=== PATIENT | male | born 1950 | race Caucasian/White ===

== ENCOUNTER → 2019-03-25 | Outpatient (CLI) | payer MEDICARE, OTHER | END | disposition home or self-care (01) | LOC: LABPAT 16:42 | PROVIDERS: ATTEND Orthopaedic Surgery | DX: Z01.812 Encounter for preprocedural laboratory examination (principal) | CPT/HCPCS: 87070 ==

== ENCOUNTER 2019-04-16 10:45 | Day surgery (SDC) | payer MEDICARE, OTHER ==
--- NOTE | 2019-04-15 09:21 | HP ---
HISTORY AND PHYSICAL CHIEF COMPLAINT: Right knee pain. 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 He has had a previous arthroscopy in addition to injections and medications with only partial temporary relief. He notes pain that limits his normal function and activities. PAST MEDICAL HISTORY: Significant for hypertension, arthritis, and prostate cancer. PAST SURGICAL HISTORY: Significant for previous right knee arthroscopy. CURRENT MEDICATIONS: Losartan. ALLERGIES: He denies drug allergies. FAMILY HISTORY: Significant for heart disease and cancer. SOCIAL HISTORY: Significant for previous chewing tobacco use. REVIEW OF SYSTEMS: Sixteen-point review of systems otherwise reviewed and is noncontributory. PHYSICAL EXAMINATION: On examination, the patient is approximately 5 feet 9 inches, 300 pounds of endomorphic habitus. HEENT exam is nonfocal. Neck is supple. He has painless passive motion of the right hip. Straight leg raise is negative. Active motion right knee -6 to 110 degrees of flexion. He has a mild effusion. He is tender about the medial joint line. He has genu varum alignment. Collaterals are stable, Kelly's negative, Valery's is equivocal. His distal neurovascular exam appears intact in the right lower extremity. Previous weightbearing notch lateral and Merchant views of the right knee obtained in the office show severe medial and patellofemoral compartment narrowing. IMPRESSION: 1. Right knee severe medial and patellofemoral compartment osteoarthrosis. 2. Obesity. RECOMMENDATIONS: I talked to the patient at length regarding his condition along with treatment options. At this point, he notes he is quite limited because of pain related to his osteoarthrosis despite conservative measures. After thorough discussion, he opts to proceed with surgery. We will plan to proceed with right total knee arthroplasty. We will institute DVT prophylaxis postoperatively. Risks and benefits were discussed at length in layman's terms. MMODL / IJN: [id number] /
[~2019-04-16 10:45] MED LIST: ACETAMINOPHEN TAB 500 MG TAB PO ONE; DEXAMETHASONE SOD PHOSPHATE 10 MG/ML 1 ML VIAL IV ONE; HYDROmorphone 0.5 MG/0.5 ML SYRINGE IVP PRN; MELOXICAM 7.5 MG TAB PO ONE; MIDAZOLAM 2 MG/2 ML VIAL IV PRN; ONDANSETRON 4 MG/2 ML VIAL IVP ONE; ROPIVACAINE 246.25 MG, EPINEPHrine 0.5 MG, KETOROLAC 30 MG, cloNIDine HCL/PF 80 MCG, WA... MISCELLANE ONE; TRANEXAMIC ACID 1,000 MG in SODIUM CHLORIDE 0.9% 100 ML IVPB ONE; ceFAZolin 3 GM in SODIUM CHLORIDE 0.9% 100 ML IVPB ONE
[2019-04-16] MEDS: LACTATED RINGERS 1,000 ML IV SCH (11:39)
[2019-04-16] MEDS ORDERED: LIDOCAINE 1% 20 ML VIAL (10MG/ML) FOR IV START INTRADERMA ONE (11:40)
[2019-04-16] MEDS ORDERED: MIDAZOLAM 2 MG/2 ML VIAL IVP ONE (12:03)
[2019-04-16] MEDS ORDERED: fentaNYL (PF) 50 MCG/ML 2 ML AMP IVP ONE (12:04)
[2019-04-16] MEDS ORDERED: ePHEDrine SULFATE/0.9% NACL/PF 50 MG/5 ML SYRINGE IV ONE (13:39)
[2019-04-16] MEDS ORDERED: PHENYLEPHRINE-0.9% NACL SYG 1 MG/10 ML SYRINGE ONE (13:39)
[2019-04-16] MEDS ORDERED: fentaNYL (PF) 50 MCG/ML 2 ML AMP ONE (13:39)
[2019-04-16] MEDS ORDERED: TRANEXAMIC ACID 1,000 MG/10 ML VIAL ONE (13:39)
[2019-04-16] MEDS ORDERED: MIDAZOLAM 2 MG/2 ML VIAL ONE (13:39)
[2019-04-16] MEDS ORDERED: PROPOFOL 10 MG/ML 20 ML VIAL IV ONE (13:39)
[2019-04-16] MEDS ORDERED: SODIUM CHLORIDE 0.9% 100 ML BAG ONE (13:39)
[2019-04-16] MEDS ORDERED: ceFAZolin 3,000 MG in SODIUM CHLORIDE 0.9% IRRIGATIO 3,000 ML IRRIGATION ONE (14:17)
[2019-04-16] MEDS ORDERED: LACTATED RINGERS 1,000 ML IV ONE ×2 (14:45→16:52)
[2019-04-16] MEDS ORDERED: ROPIVACAINE 0.2%-NS ON-Q PUMP 1,090 MG, EMPTY PAIN BALL 1 EACH MISCELLANE PRN (15:00)
--- NOTE | 2019-04-16 15:02 | P.ANPRN ---
Procedure Note - Anesthesia - Nerve Block Performed Right Adductor Canal Infusion Time Out Performed: Yes Date of Procedure: 04/16/19 Procedure Start Time: 12:02 Procedure Stop Time: 12:15 Location of Patient: PreOp Indication: Acute Post-Operative Pain Specifically requested for management of pain by DrDahlia: Paul Pham Sedation Type: Sedate with meaningful contact maintained Preparation: Sterile Prep Position: Supine Catheter Depth at Skin (cm): 8 Catheter: Indwelling Needle Types: Pajunk Needle Gauge: 18 Ultrasound used to visualize needle placement: Yes Ultrasound used to observe medication spread: Yes Injectate: 0.5% Ropivacaine (see comment for volume) (20 cc) Blood Aspirated: No Pain Paresthesia on Injection Noted: No Resistance on Injection: Normal Image Stored and Saved: Yes Events: Uneventful and Well Tolerated
[2019-04-16] MEDS ORDERED: HYDROmorphone 0.5 MG/0.5 ML SYRINGE IVP PRN (15:36)
[2019-04-16] MEDS ORDERED: NALOXONE 0.4 MG/ML 1 ML VIAL IV PRN (15:36)
[2019-04-16] MEDS ORDERED: MAGNESIUM HYDROXIDE 2,400 MG/10 ML CUP PO PRN (15:36)
[2019-04-16] MEDS ORDERED: ONDANSETRON 4 MG/2 ML VIAL IVP PRN (15:36)
[2019-04-16] MEDS ORDERED: traMADol 50 MG TAB PO PRN (15:36)
[2019-04-16] MEDS ORDERED: HYDROcodone/APAP 7.5-325MG 1 EACH TAB PO PRN ×2 (15:36→15:37)
[2019-04-16] MEDS ORDERED: ACETAMINOPHEN TAB 325 MG TAB PO PRN (15:36)
[2019-04-16] MEDS ORDERED: HYDROmorphone 1 MG/ML 1 ML SYRINGE IVP PRN (15:36)
--- NOTE | 2019-04-16 16:01 | P.OP ---
Date of Procedure: 04/16/19 Preoperative Diagnosis: Right knee severe tricompartmental osteoarthrosis Postoperative Diagnosis: Same Procedure(s) Performed: Right total knee arthroplastycementedcruciate substituting Implants: Depuy Attune size 7 cemented femoral component, size 7 cemented tibial component, 9 mm articular surface, 35 mm cemented patellar component. This is a posterior stabilized implant. Anesthesia: regional, local (Ankit), spinal Surgeon: Paul Pham Transportation Program Director #1: Bakari Wheat Estimated Blood Loss (ml): 50 Pathology: other (Bone fragments) Condition: stable Disposition: PACU Indications for Procedure: The patient's a 68-year-old male who presents with progressive right knee pain secondary to osteoarthrosis despite conservative measures. A discussion of the risks and benefits of operative intervention versus continued conservative measures was made with the patient. He opted to proceed with surgery. Operative risks to include infection, neurovascular injury, development of blood clots, possible fracture, possible loosening of components and need for subsequent procedures was discussed. Informed consent was obtained. Operative Findings: As below Description of Procedure: The patient was brought to the operating room, and after induction of spinal anesthesia the right lower extremity was prepped and draped in a normal fashion. The tourniquet was inflated to 270 mm marker. A longitudinal incision extending 3 finger breaths above the superior pole of patella extending to the medial aspect the tibial tubercle was then made. The skin and subcutaneous ti ssues were divided sharply. Electrocautery was used for hemostasis. A medial parapatellar arthrotomy was performed. The medial soft tissues to include the superficial and deep portions of the medial collateral ligament were elevated subperiosteally. The patella was everted. A portion of the retropatellar fat pad was excised sharply. The anterior cruciate ligament was sacrificed. Blunt retractors were placed. A starting hole was made in the distal femur 1 cm anterior to the posterior cruciate ligament origin. An intramedullary femoral guide was then inserted planning on 5 valgus distal cut with 9 mm distal resection. The cutting block was pinned in place. The distal cut was then made. The posterior referencing sizing guide was utilized. I felt size 7 was most appropriate. 3 of external rotation was built into the system and verified off the trans-epicondylar axis and the posterior condyles. The cutting block was pinned in place. The anterior, posterior, and chamfer cuts then made. Bone fragments were removed. The intercondylar guide was placed and the notch cut was made with a sagittal saw. The bone block was removed in one fragment. The trial component was then placed. There is good anterior to posterior and medial to lateral fit. The distal peg holes were drilled. The trial component was removed. Attention was then paid towards preparing the proximal tibia. An extra medullary guide was utilized in line with the tibial shaft and second metatarsal distally. I planned on []mm resection from the medial compartment. The 0 cutting block was pinned in place. The proximal tibial cut was then made. The bone was removed in one fragment. The remnants of the medial and lateral menisci were excised at the capsular junction with electrocautery. The tibia sized most appropriately at size 7. The trial femoral and tibial components were placed along with a 9 mm articular surface. I was able to obtain full flexion and extension with internal and external rotation. After several flexion and extension cycles, the tibial rotation was marked with electrocautery line with the medial one third of the tibial tubercle. Attention was then paid towards preparing the patella. A patella reamer was utilized taking stem to 14 mm of bone stock. A good flush cut was made. The patella sized most appropriately 35 mm. The peg holes were drilled. The trial components placed. I had good patellofemoral tracking with no hands technique. The trial components were then removed. The tibia was prepared in the appropriate rotation with appropriate drill and keel punch. I planned on a 50 mm stem. The posterior osteophytes were removed with a curved osteotome. The flexion and extension gaps were checked and felt to be symmetric at a 9 mm. A trial components were then removed. The posterior soft tissues were injected with ropivacaine. The bony surfaces were prepared with pulsatile lavage and dried. The tibial component was then cemented place was fully seated. Excess cement was removed. The femoral component cemented place and was fully seated. Excess cement was removed. The trial 9 mm articular surface was placed and the knee was put in full extension. The patella component was cemented place. After the cement had sufficiently hardened, the knee was again taken through a range of motion. Again I was able to obtain full flexion and extension with varus and valgus stress. The trial 9 mm articular surface was removed and the final one inserted. This was fully seated. Care was taken to avoid any soft tissue interposition. Pulsatile lavage was again utilized. The medial parapatellar arthrotomy was closed with #2 Ethibond suture. The tourniquet was deflated with approximately 75 minutes total tourniquet time. Final hemostasis was obtained with electrocautery. There was minimal bleeding therefore a deep drain was not placed. The subcutaneous tissues were reapproximated with interrupted 2-0 Vicryl sutures. The skin was reapproximated with 3-0 subcuticular strata fix suture. Skin tape and adhesive was applied. A sterile dressing was applied. The patient was awoken from sedation and transferred to recovery room in good condition. Blood loss was estimated at 50 mL. No complications were incurred. Sponge and needle counts were correct at the end of the case. Misael MATUTE assisted during the major components of this case to include exposure, bone resection, implantation, and closure.
--- NOTE | 2019-04-16 17:00 | XR ---
EXAMINATION TYPE: XR knee limited RT DATE OF EXAM: 04/16/2019 COMPARISON: NONE HISTORY: Postop knee surgery TECHNIQUE: 2 views FINDINGS: There is right knee prosthesis. Components are in anatomic position. IMPRESSION: No complicating process seen.
[2019-04-16 18:53] VITALS: BMI 42.3
[2019-04-16] MEDS ORDERED: SENNOSIDES-DOCUSATE SODIUM 1 EACH TAB PO SCH (21:00)
[2019-04-16] MEDS: ceFAZolin 3 GM in SODIUM CHLORIDE 0.9% 100 ML IVPB SCH (21:41)
--- NOTE | 2019-04-16 22:01 | P.CONS ---
History of Present Illness - Reason for Consult Consult date: 04/16/19 Medical management postoperatively Requesting physician: Paul Pham - Chief Complaint Scheduled right total knee arthroplasty - History of Present Illness 68-year-old male with history of hypertension Patient came in today for scheduled right total knee arthroplasty. Patient tolerated procedure well denies any observed immediate complications postoperatively denies any shortness of breath or chest pain denies any fevers or chills. He reports that pain is well tolerated he passed urine. Tolerated food. Patient reports long history of pains and stiffness in the morning when he wakes up due to degenerative joint disease of the right knee refractory to conservative therapy. we were requested to see the patient to assist with medical management post operatively Review of Systems Pertinent positives as noted in HPI. All other systems were reviewed and are negative Past Medical History Past Medical History: Cancer, Hypertension, Osteoarthritis (OA), Prostate Disorder Additional Past Medical History / Comment(s): Hx prostate CA. History of Any Multi-Drug Resistant Organisms: None Reported Past Surgical History: Heart Catheterization, Prostate Surgery Additional Past Surgical History / Comment(s): Rt Thumb traumatic amputation. Radiation seed implant prostate 2011. Rt knee scope. Heart cath 2018, nl. Past Anesthesia/Blood Transfusion Reactions: No Reported Reaction Past Psychological History: No Psychological Hx Reported Smoking Status: Former smoker Past Alcohol Use History: None Reported Additional Past Alcohol Use History / Comment(s): Occ smoking, quit 1993; also Chewed tobacco, quit 2007. Past Drug Use History: None Reported - Past Family History Father Family Medical History: Cancer Additional Family Medical History / Comment(s): prostate ca Sister(s) Family Medical History: Cancer Additional Family Medical History / Comment(s): breast ca Medications and Allergies Home Medications Medication Instructions Recorded Confirmed Type Ibuprofen [Advil] 200 mg PO Q8HR PRN 04/11/19 04/11/19 History Losartan/Hydrochlorothiazide 1 tab PO DAILY 04/11/19 04/11/19 History [Hyzaar 100-25 Tablet] Allergies Allergy/AdvReac Type Severity Reaction Status Date / Time No Known Allergies Allergy Verified 04/16/19 11:07 Physical Exam Vitals: Vital Signs Temp Pulse Resp BP Pulse Ox 04/16/19 19:27 97.8 F 89 15 133/86 99 04/16/19 17:50 82 104/71 04/16/19 17:35 82 121/77 04/16/19 17:25 98.3 F 84 18 122/82 94 L 04/16/19 17:20 86 131/83 04/16/19 16:45 63 16 109/55 96 04/16/19 16:30 60 16 102/58 93 L 04/16/19 16:15 79 15 100/58 93 L 04/16/19 16:01 96.8 F L 87 18 99/57 96 04/16/19 12:17 80 16 108/65 94 L 04/16/19 11:24 97.6 F 98 16 125/75 97 Intake and Output 04/16/19 04/16/19 04/16/19 06:59 14:59 22:59 Intake Total 190 200 Output Total 50 Balance 1900 150 Intake: IV 1900 200 Output: Estimated Blood Loss 50 Constitutional: No acute distress, conversant, pleasant Eyes: Anicteric sclerae, moist conjunctiva, no lid-lag Pupils equal round reactive to light ENMT: NC/AT Oropharynx clear, no erythema, exudates Neck: Supple, FROM, no masses, or JVD No carotid bruits No thyromegaly Lungs: Clear to auscultation Clear to percussion Normal respiratory effort, no accessory muscle use Cardiovascular: Heart regular in rate and rhythm, No murmurs, gallops, or rubs No peripheral edema Abdominal: Soft Nontender, no guarding, rebound or rigidity Abdomen moving with respiration Normoactive bowel sounds No hepatomegaly, No splenomegaly No palpable mass No abdominal wall hernia noted Skin: Normal temperature, tone, texture, turgor No induration No subcutaneous nodules No rash, lesions No ulcers Extremities: No digital cyanosis No clubbing Pedal pulses intact and symmetrical Radial pulses intact and symmetrical No calf tenderness Psychiatric: Alert and oriented to person, place and time Appropriate affect fair judgement Neuro Muscles Strength 5/5 in bilateral upper and left lower extremity, righ tlower extremity limited exam due to recent surgery and pain Sensation to light touch grossly present throughout Cranial nerves II-XII grossly intact No focal sensory deficits Lymphatics: no palpable cervical or supraclavicular , or inguinal lymph nodes Assessment and Plan Assessment: 68 year old male with dgenerative joint disease, and hypertension, admitted for scheduled right total knee arthroplasty, tolerated procedure well, medicine consulted for medical management post operatively. Plan: right knee degenrative joint disease, s/p right total knee arthroplasty POD # zero pain and DVT PPX per orthopedics currently on xarelto hypertension , controlled continue home meds DVT ppx currently on xarelto full code Check CBC and basic metabolic panel in the morning Encourage use of incentive spirometry Thank you for allowing us to participate in the care of this patient. Do not hesitate to contact us with questions. Someone can be reached from the [facility] hospitalist group at all hours of the day at [phone].
[2019-04-17] MEDS: ceFAZolin 3 GM in SODIUM CHLORIDE 0.9% 100 ML IVPB SCH (05:36)
[2019-04-17] MEDS: LACTATED RINGERS 1,000 ML IV SCH (05:37)
[2019-04-17 08:21] VITALS: BP 101/64; PULSE 77; RESP 17; TEMP 97.9
[2019-04-17 08:21] LABS: Basophils % (A) 0 %; Eosinophils # (A) 0.1 k/uL (0-0.7); Eosinophils % (A) 0 %; HCT 43.3 % (39.0-53.0); HGB 14.8 gm/dL (13.0-17.5); Lymphocytes # (A) 1.5 k/uL (1.0-4.8); Lymphocytes % (A) 10 %; MCH 31.4 pg (25.0-35.0); MCHC 34.1 g/dL (31.0-37.0); MCV 92.1 fL (80.0-100.0); Mean Platelet Volume 6.5; Monocytes # (A) 0.8 k/uL (0-1.0); Monocytes % (A) 6 %; Neutrophils # (A) 12.1 k/uL (1.3-7.7); Neutrophils % (A) 83 %; Platelet Count 283 k/uL (150-450); RDW 13.3 % (11.5-15.5); WBC 14.7 k/uL (3.8-10.6)
[2019-04-17 08:24] LABS: African American GFR (CKD) >90 (>60 ml/min/1.73 sqM); Anion Gap 9 mmol/L; Blood Urea Nitrogen 17 mg/dL (9-20); Carbon Dioxide 25 mmol/L (22-30); Chloride 105 mmol/L (98-107); Glucose 104 mg/dL (74-99); Non-African American GFR(CKD) 88 (>60 ml/min/1.73 sqM); Potassium 4.1 mmol/L (3.5-5.1); Sodium 139 mmol/L (137-145)
[2019-04-17] MEDS ORDERED: RIVAROXABAN 10 MG TAB PO SCH (09:00)
[2019-04-17] MEDS ORDERED: LOSARTAN-HCTZ 50-12.5 MG 1 EACH TAB PO SCH (09:00)
--- NOTE | 2019-04-17 10:25 | P.PN ---
Subjective Progress Note Date: 04/17/19 Principal diagnosis: knee pain Patient is a 68-year-old male with a past medical history of hypertension and osteoarthritis and prostate disorder who presented for elective right total knee arthroplasty. Patient tolerated procedure well without any immediate postoperative complications. Patient seen and examined at bedside with family present. His postoperative christine n is manageable. He denies any nausea, vomiting, chest pain, shortness of breath. We discussed using aggressive bowel regimen if he becomes constipated at home. Objective - Vital Signs Vital signs: Vital Signs Temp 97.9 F 04/17/19 07:00 Pulse 77 04/17/19 07:00 Resp 17 04/17/19 07:00 BP 101/64 04/17/19 07:00 Pulse Ox 94 L 04/17/19 07:00 Intake & Output 04/16/19 04/17/19 04/17/19 18:59 06:59 18:59 Intake Total 2101 1000 Output Total 50 Balance 2051 1000 Intake: IV 2101 Intake, IV Titration 800 Amount Lactated Ringers 1,000 ml 600 @ 50 mls/hr IV .Q20H DAVID Rx#:[id number] ceFAZolin 3 gm In Sodium 200 Chloride 0.9% 100 ml @ 200 mls/hr IVPB Q8H DAVID Rx#:[id number] Oral 200 Output: Estimated Blood Loss 50 Other: Voiding Method Toilet Toilet # Voids 1 - Exam General: non toxic, no distress, appears at stated age, obese Derm: Dressing in place over right knee warm, dry Head: atraumatic, normocephalic, symmetric Eyes: EOMI, no lid lag, anicteric sclera Mouth: no lip lesion, mucus membranes moist Cardiovascular: S1S2 reg, no murmur, positive posterior tibial pulse bilateral, Lungs: Decreased breath sounds bilateral secondary to body habitus, no rhonchi, no rales , no accessory muscle use Abdominal: soft, nontender to palpation, no guarding, no appreciable organomegaly Ext: no gross muscle atrophy, 1+ edema right lower extremity, no contractures Neuro: CN II-XI grossly intact, no focal neuro deficits Psych: Alert, oriented, appropriate affect - Labs CBC & Chem 7: 04/17/19 07:30 04/17/19 07:30 Labs: Abnormal Lab Results - Last 24 Hours (Table) 04/17/19 04/17/19 Range/Units 07:30 07:30 WBC 14.7 H (3.8-10.6) k/uL Neutrophils # 12.1 H (1.3-7.7) k/uL Glucose 104 H (74-99) mg/dL Assessment and Plan Assessment: Patient is a 68-year-old male here for elective right total knee arth roplasty. Hypertension, controlled -Resume lisinopril/hydrochlorothiazide and discharge Morbid obesity with BMI 43 -Structured outpatient weight losses continues to improve. Medically optimized for discharge at the discretion of the orthopedic service
--- NOTE | 2019-04-17 12:08 | P.PN ---
Subjective Progress Note Date: 04/17/19 Principal diagnosis: s/p right tka Patient evaluated at bedside, he is resting comfortably. His pain is well- controlled. He's done well with therapy. Objective - Vital Signs Vital signs: Vital Signs Temp 97.9 F 04/17/19 07:00 Pulse 77 04/17/19 07:00 Resp 17 04/17/19 07:00 BP 101/64 04/17/19 07:00 Pulse Ox 94 L 04/17/19 07:00 Intake & Output 04/16/19 04/17/19 04/17/19 18:59 06:59 18:59 Intake Total 2101 1000 Output Total 50 Balance 2050 1000 Intake: IV 2100 Intake, IV Titration 800 Amount Lactated Ringers 1,000 ml 600 @ 50 mls/hr IV .Q20H DAVID Rx#:[id number] ceFAZolin 3 gm In Sodium 200 Chloride 0.9% 100 ml @ 200 mls/hr IVPB Q8H DAVID Rx#:[id number] Oral 200 Output: Estimated Blood Loss 50 Other: Voiding Method Toilet Toilet # Voids 1 - Exam Right lower extremity: Incision is clean, dry, and intact. The exofin fusion tape is in good condition. There is minimal soft tissue swelling and ecchymosis surrounding the medial and lateral aspects of the incision. Calf is soft, no tenderness with palpation. Plantar flexion, dorsiflexion, EHL, FHL are intact. Sensory exam to light touch throughout the extremity is intact, dorsal pedis pulses 2+. - Labs CBC & Chem 7: 04/17/19 07:30 04/17/19 07:30 Labs: Abnormal Lab Results - Last 24 Hours (Table) 04/17/19 04/17/19 Range/Units 07:30 07:30 WBC 14.7 H (3.8-10.6) k/uL Neutrophils # 12.1 H (1.3-7.7) k/uL Glucose 104 H (74-99) mg/dL Assessment and Plan Plan: Assessment: Postop day 1 status post right total knee arthroplasty Plan: Pain control, plan for discharge on [place] 7.5 mg/325 mg GI and DVT prophylaxis, Eliquis 2.5mg bid for 2 weeks Wound care instructions discussed Home physical therapy and nursing after discharge Medical recommendations Discharge home today Time with Patient: Less than 30
--- NOTE | 2019-04-17 12:11 | P.DS ---
Providers Date of admission: 04/16/2019 Expected date of discharge: 04/17/19 Attending physician: Paul Pham Consults: 04/16/19 15:35 Consult Physician Routine Consulting Provider: Sarah Sims Consult Reason/Comments: Medical Management Do you want consulting provider notified?: Yes Primary care physician: Sarah Sims MD Hospital Course: Date of admission: 04/16/2019 Date of discharge: 04/17/2019 Admission diagnosis: Status post right total knee arthroplasty Discharge diagnosis: Same Attending physician: Dr. Pham Surgical procedures: Right total knee arthroplasty Brief history: Patient is a 68-year-old male with a history of progressive primary right knee osteoarthritis. At this point patient has failed conservative treatment measures and has opted to proceed with a elective right total knee arthroplasty. Hospital course: Details of patient's surgery can be found in operative report. Patient tolerated the procedure well and was subsequently transported to [facility] floor. Patient's orthopeidc and medical care was provided daily. Patient had daily laboratory tests performed for evaluation of overall blood counts. Patient had daily physical therapy to include strengthening range of motion as well as education with walker ambulation. Patient had daily CPM usage as part of their physical therapy program. Patient was treated with Xarelto for their postoperative DVT prophylaxis during their inpatient stay. Patient was noted to have a relatively uneventful postoperative course. Patient reported satisfactory pain control with oral pain medications by postoperative day 0. Patient showed satisfactory progress with physical therapy. Patient moved steadily through the program and had no difficulty meeting the goals by postoperative day 1. Given patient's otherwise satisfactory course and having met physical therapy goals, plan is to discharge patient home on postoperative day 1. Discharge condition/disposition: Patient will be discharged home in stable condition. Discharge medications: Instructions are given on resumption of patient's normal daily medications per primary care recommendation, in addition patient will be prescribed [place] 7.5 mg/325 mg, Colace 100 mg, Eliquis 2.5mg. Discharge instructions: 1. Wound care and infection precautions, keep incision dry and covered while showering, no lotions, creams, moisturizers. No soaking, tubs, pools, hottubs. Do not scrub over the incision. 2. Weight-bear as tolerated with walker / cane until follow-up. 3. Ice and elevate when necessary. Do not exceed 20 minutes per hour with ice pack. 4. Utilize compression sleeve until seen at first follow up appointment. 5. Visiting nursing care. 6. Home physical therapy including home CPM. 7. Pain meds and anticoagulants per prescription. 8. Pain medication has potential to cause constipation. Increase oral fluid and fiber intake. Contact primary care provider if you have not had a bowel movement within 48 hours after discharge 9. No anti-inflammatory medication until discussed at first post operative visit, this including Motrin, Aleve, Mobic, Diclofenac. 10. Follow up in office at 2 weeks postop with Misael Wheat PA-C 11. Follow up with your primary care doctor 7-10 days after discharge. 12. Contact [facility] with any questions, . Procedures: Right total knee arthroplasty Patient Condition at Discharge: Good Plan - Discharge Summary Discharge Rx Participant: No New Discharge Prescriptions: New Docusate [Colace] 100 mg PO DAILY #30 capsule Apixaban [Eliquis] 2.5 mg PO BID #60 tab HYDROcodone/APAP 7.5-325MG [[place] 7.5] 1 - 2 each PO Q6HR PRN #56 tab PRN Reason: Pain Continue Losartan/Hydrochlorothiazide [Hyzaar 100-25 Tablet] 1 tab PO DAILY No Action Ibuprofen [Advil] 200 mg PO Q8HR PRN PRN Reason: Pain Discharge Medication List Ibuprofen [Advil] 200 mg PO Q8HR PRN 04/11/19 [History] Losartan/Hydrochlorothiazide [Hyzaar 100-25 Tablet] 1 tab PO DAILY 04/11/19 [History] Apixaban [Eliquis] 2.5 mg PO BID #60 tab 04/17/19 [Rx] Docusate [Colace] 100 mg PO DAILY #30 capsule 04/17/19 [Rx] HYDROcodone/APAP 7.5-325MG [[place] 7.5] 1 - 2 each PO Q6HR PRN #56 tab 04/17/19 [Rx] Follow up Appointment(s)/Referral(s): [facility] [NON-STAFF] - Sarah Sims MD [Primary Care Provider] - 1 Week Bakari Wheat PAC [PHYSICIAN DOBIE MAN] - 05/01/19 3:30 pm Activity/Diet/Wound Care/Special Instructions: Orthopedic Discharge Instructions: 1. Wound care and infection precautions, keep incision dry and covered while showering, no lotions, creams, moisturizers. No soaking, pools, hot tubs. Do not scrub over incision. 2. Weight-bear as tolerated with walker / cane until follow-up. 3. Ice and elevate when necessary. Do not exceed 20 minutes per hour with ice pack. 4. Utilize compression sleeve until seen at first follow up appointment. 5. Pain meds and anticoagulants per prescription. 6. Pain medication has potential to cause constipation. Increase oral fluid and fiber intake. Contact primary care provider if you have not had a bowel movement within 48 hours after discharge. 7. No anti-inflammatory medication until discussed at first post operative visit, this including Motrin, Aleve, Mobic, Diclofenac. 8. Follow up in office at 2 weeks postop with Misael Wheat PA-C 9. Follow up with your primary care doctor 7-10 days after discharge. 10. Contact [facility] with any questions, [phone]. 11. *Please call [facility] once home to arrange delivery of continuous passive motion (CPM) machine: [phone]. Discharge Disposition: HOME WITH HOME HEALTH SERVICES
--- NOTE | 2019-04-17 13:42 | P.PN ---
Progress Note - Text Progress Note Date: 04/17/19 68-year-old male status post right total knee arthroplasty postop day #1, adductor canal catheter day #2. Patient doing well VAS between 1-2 out of 10 in severity. Ambulating well. Catheter site looks clean dry and intact. Patient scheduled for discharge today.
== END 2019-04-17 15:26 | disposition home health service (06) ==
LOC: OR 10:45 → 4SSUR 16:17 → OR 04-17 15:26
PROVIDERS: ATTEND Orthopaedic Surgery
DX: M17.11 Unilateral primary osteoarthritis, right knee (principal); I10 Essential (primary) hypertension; E66.01 Morbid (severe) obesity due to excess calories; Z68.41 Body mass index [BMI] 40.0-44.9, adult; Z79.899 Other long term (current) drug therapy; Z87.891 Personal history of nicotine dependence; Z85.46 Personal history of malignant neoplasm of prostate; Z98.890 Other specified postprocedural states; Z92.3 Personal history of irradiation; Z89.011 Acquired absence of right thumb; Z80.3 Family history of malignant neoplasm of breast; Z80.42 Family history of malignant neoplasm of prostate; Z82.49 Family history of ischemic heart disease and other diseases of the circulatory system
CPT/HCPCS: 97161; 64448; 76942; 80048; 85025; 73560; 27447; C1713; C1776; J2250; J0171; J1100; J0690 ×3; J2405; J3010; J1885; J2795 ×2; J0735; 88305; 88311

== ENCOUNTER → 2019-05-13 | Outpatient (CLI) | payer MEDICARE, OTHER ==
[2019-05-13 14:07] LABS: Basophils # (A) 0.1 k/uL (0-0.2); Basophils % (A) 1 %; Eosinophils # (A) 0.2 k/uL (0-0.7); Eosinophils % (A) 2 %; HCT 44.9 % (39.0-53.0); HGB 15.3 gm/dL (13.0-17.5); Lymphocytes # (A) 2.4 k/uL (1.0-4.8); Lymphocytes % (A) 24 %; MCH 31.4 pg (25.0-35.0); MCHC 34.1 g/dL (31.0-37.0); Mean Platelet Volume 7.4; Monocytes # (A) 0.6 k/uL (0-1.0); Monocytes % (A) 6 %; Neutrophils # (A) 6.7 k/uL (1.3-7.7); Neutrophils % (A) 66 %; Platelet Count 314 k/uL (150-450); RBC 4.88 m/uL (4.30-5.90); RDW 13.2 % (11.5-15.5)
[2019-05-13 14:12] LABS: Prothrombin Time 10.6 sec (9.0-12.0)
[2019-05-13 14:14] LABS: Potassium 4.2 mmol/L (3.5-5.1)
== END | disposition home or self-care (01) ==
LOC: LABPAT 13:36
PROVIDERS: ATTEND Orthopaedic Surgery
DX: Z01.812 Encounter for preprocedural laboratory examination (principal); M17.12 Unilateral primary osteoarthritis, left knee
CPT/HCPCS: 36415; 80051; 85025; 85610

== ENCOUNTER 2019-05-27 09:32 | Day surgery (SDC) | payer MEDICARE, OTHER ==
[2019-05-17 13:25] VITALS: BMI 40.1
--- NOTE | 2019-05-26 20:08 | HP ---
HISTORY AND PHYSICAL CHIEF COMPLAINT: Left knee pain. 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 He has pain with normal weightbearing activities that limit him significantly. PAST MEDICAL HISTORY: Significant for arthritis and hypertension along with prostate cancer. PAST SURGICAL HISTORY: Significant for prostate surgery in addition to recent right total knee arthroplasty. CURRENT MEDICATIONS: Losartan. ALLERGIES: He denies drug allergies. FAMILY HISTORY: Significant for cancer, heart disease. SOCIAL HISTORY: Significant for previous tobacco use. REVIEW OF SYSTEMS: Sixteen point review of systems otherwise reviewed and is noncontributory. PHYSICAL EXAMINATION: On examination, the patient is a well developed male 300 pounds of endomorphic habitus. HEENT exam is nonfocal. NECK: Supple. He has painless passive motion of the left hip. Straight leg raise is negative. Active motion left knee -8 to 120 degrees of flexion. He is tender about the medial joint line. He has a trace effusion. He has genu varum alignment. His distal neurovascular exam appears intact in the left lower extremity. Weightbearing notch, lateral and Merchant views of the left knee obtained in the office show severe medial and patellofemoral compartment narrowing. IMPRESSION: 1. Left knee severe medial and patellofemoral compartment osteoarthrosis. 2. Increased body mass index. RECOMMENDATIONS: I talked to the patient at length regarding his condition along with treatment options. At this point, he is quite symptomatic because of his osteoarthrosis and opts to proceed with surgery. We will plan to proceed with left total knee arthroplasty. Risks and benefits were discussed at length in layman's terms. We will institute DVT prophylaxis postoperatively. MMODL / IJN: [id number] / [facility]
[~2019-05-27 09:32] MED LIST changes: -ROPIVACAINE 246.25 MG, EPINEPHrine 0.5 MG, KETOROLAC 30 MG, cloNIDine HCL/PF 80 MCG, WA... MISCELLANE ONE
[2019-05-27] MEDS: LACTATED RINGERS 1,000 ML IV SCH (10:30)
[2019-05-27] MEDS ORDERED: LIDOCAINE 1% 20 ML VIAL (10MG/ML) FOR IV START INTRADERMA ONE (10:30)
[2019-05-27] MEDS ORDERED: fentaNYL (PF) 50 MCG/ML 2 ML AMP IV ONE (11:02)
[2019-05-27] MEDS ORDERED: MIDAZOLAM 2 MG/2 ML VIAL IV ONE (11:02)
[2019-05-27] MEDS ORDERED: ROPIVACAINE 0.2%-NS ON-Q PUMP 1,090 MG, EMPTY PAIN BALL 1 EACH MISCELLANE PRN (11:36)
--- NOTE | 2019-05-27 11:41 | P.ANPRN ---
Procedure Note - Anesthesia - Nerve Block Performed Left Adductor Canal Infusion Time Out Performed: Yes Date of Procedure: 05/27/19 Location of Patient: PreOp Indication: Acute Post-Operative Pain, Dx/Pain Location, Requested by Surgeon Sedation Type: Sedate with meaningful contact maintained Preparation: Sterile Prep Position: Supine Catheter: Indwelling Needle Types: Pajunk Needle Gauge: 21 Ultrasound used to visualize needle placement: Yes Ultrasound used to observe medication spread: Yes Injectate: 0.5% Ropivacaine (see comment for volume) (30ML) Blood Aspirated: Yes Pain Paresthesia on Injection Noted: Yes Resistance on Injection: Normal Image Stored and Saved: Yes Events: Uneventful and Well Tolerated
[2019-05-27] MEDS ORDERED: TRANEXAMIC ACID 1,000 MG/10 ML VIAL ONE (11:57)
[2019-05-27] MEDS ORDERED: MIDAZOLAM 2 MG/2 ML VIAL ONE (11:57)
[2019-05-27] MEDS ORDERED: diphenhydrAMINE 50 MG/ML 1 ML VIAL ONE (11:57)
[2019-05-27] MEDS ORDERED: PHENYLEPHRINE-0.9% NACL SYG 1 MG/10 ML SYRINGE ONE (11:57)
[2019-05-27] MEDS ORDERED: KETAMINE 10 MG/ML 20 ML VIAL ONE (11:57)
[2019-05-27] MEDS ORDERED: ePHEDrine SULFATE/0.9% NACL/PF 50 MG/5 ML SYRINGE IV ONE (11:57)
[2019-05-27] MEDS ORDERED: SODIUM CHLORIDE 0.9% 100 ML BAG ONE (11:57)
[2019-05-27] MEDS ORDERED: ceFAZolin 3,000 MG in SODIUM CHLORIDE 0.9% IRRIGATIO 3,000 ML IRRIGATION ONE (12:00)
[2019-05-27] MEDS ORDERED: ROPIVACAINE 246.25 MG, EPINEPHrine 0.5 MG, KETOROLAC 30 MG, cloNIDine HCL/PF 80 MCG, WA... MISCELLANE ONE ×5 (12:28)
[2019-05-27] MEDS ORDERED: LACTATED RINGERS 1,000 ML IV ONE (12:56)
[2019-05-27] MEDS ORDERED: MAGNESIUM HYDROXIDE 2,400 MG/10 ML CUP PO PRN (13:50)
[2019-05-27] MEDS ORDERED: ACETAMINOPHEN TAB 325 MG TAB PO PRN (13:50)
[2019-05-27] MEDS ORDERED: NALOXONE 0.4 MG/ML 1 ML VIAL IV PRN (13:50)
[2019-05-27] MEDS ORDERED: HYDROmorphone 0.5 MG/0.5 ML SYRINGE IVP PRN (13:50)
[2019-05-27] MEDS ORDERED: traMADol 50 MG TAB PO PRN (13:50)
[2019-05-27] MEDS ORDERED: HYDROcodone/APAP 7.5-325MG 1 EACH TAB PO PRN (13:50)
[2019-05-27] MEDS ORDERED: ONDANSETRON 4 MG/2 ML VIAL IVP PRN (13:50)
--- NOTE | 2019-05-27 14:17 | P.OP ---
Date of Procedure: 05/27/19 Preoperative Diagnosis: Left knee severe tricompartmental osteoarthrosis Postoperative Diagnosis: Same Procedure(s) Performed: Left total knee arthroplastycruciate substitutingcemented Implants: Depuy Attune size 7 cemented femoral component, size 7 cemented tibial component, 50 mm tibial stem augment, 10 mm articular surface, 35 mm cemented patellar component. This is a posterior stabilized implant. Anesthesia: regional, local, spinal Surgeon: Paul Pham Credit Manager #1: Bakari Wheat Estimated Blood Loss (ml): 50 Pathology: other (Bone fragments) Condition: stable Disposition: PACU Indications for Procedure: Patient is a 68-year-old male who presents with persistent/progressive left knee pain secondary to osteoarthrosis despite continued conservative measures. He opted proceed with surgery. Operative risks to include infection, neurovascular injury, development of blood clots, possible component loosening, possible component failure need for subsequent procedures was discussed. Informed consent was obtained. Operative Findings: As below Description of Procedure: The patient was brought to the operating room, and after induction of spinal ane sthesia the left lower extremity was prepped and draped in a normal fashion. The tourniquet was inflated to 270 mm marker. A longitudinal incision extending 3 finger breaths above the superior pole of patella extending to the medial aspect the tibial tubercle was then made. The skin and subcutaneous tissues were divided sharply. Electrocautery was used for hemostasis. A medial parapatellar arthrotomy was performed. The medial soft tissues to include the superficial and deep portions of the medial collateral ligament were elevated subperiosteally. The patella was everted. A portion of the retropatellar fat pad was excised sharply. The anterior cruciate ligament was sacrificed. Blunt retractors were placed. A starting hole was made in the distal femur 1 cm anterior to the posterior cruciate ligament origin. An intramedullary femoral guide was then inserted planning on 5 valgus distal cut with 9 mm distal resection. The cutting block was pinned in place. The distal cut was then made. The posterior referencing sizing guide was utilized. I felt size 7 was most appropriate. 3 of external rotation was built into the system and verified off the trans-epicondylar axis and the posterior condyles. The cutting block was pinned in place. The anterior, posterior, and chamfer cuts then made. Bone fragments were removed. The intercondylar guide was placed and the notch cut was made with a sagittal saw. The bone block was removed in one fragment. The trial component was then placed. There is good anterior to posterior and medial to lateral fit. The distal peg holes were drilled. The trial component was removed. Attention was then paid towards preparing the proximal femur. An extra medullary guide was utilized in line with the tibial shaft and second metatarsal distally. I planned on 2 mm resection from the medial compartment. The cutting block was pinned in place. The proximal tibial cut was then made. The bone was removed in one fragment. The remnants of the medial and lateral menisci were excised at the capsular junction with electrocautery. The tibia sized most appropriately at size 7. The trial femoral and tibial components were placed along with a 10 mm articular surface. I was able to obtain full flexion and extension with internal and external rotation. After several flexion and extension cycles, the tibial rotation was marked with electrocautery line with the medial one third of the tibial tubercle. Attention was then paid towards preparing the patella. A patella reamer was utilized taking stem to 14 mm of bone stock. A good flush cut was made. The patella sized most appropriately 35 mm. The peg holes were drilled. The trial components placed. I had good patellofemoral tracking with no hands technique. The trial components were then removed. The tibia was prepared in the appropriate rotation with appropriate drill and keel punch planning on a 50 mm stem augment . The posterior osteophytes were removed with a curved osteotome. The flexion and extension gaps were checked and felt to be symmetric at 10 mm. A trial components were then removed. The posterior soft tissues were injected with ropivacaine. The bony surfaces were prepared with pulsatile lavage and dried. The tibial component was then cemented place was fully seated. Excess cement was removed. The femoral component cemented place and was fully seated. Excess cement was removed. The trial 10 mm articular surface was placed and the knee was put in full extension. The patella component was cemented place. After the cement had sufficiently hardened, the knee was again taken through a range of motion. Again I was able to obtain full flexion and extension with varus and valgus stress. The trial 10 mm articular surface was removed and the final one inserted. This was fully seated. Care was taken to avoid any soft tissue interposition. Pulsatile lavage was again utilized. The medial parapatellar arthrotomy was closed with #2 Ethibond suture. The tourniquet was deflated with approximately 65 minutes total tourniquet time. Final hemostasis was obtained with the cautery. There was minimal bleeding therefore a deep drain was not placed. The subcutaneous tissues were reapproximated with interrupted 2-0 Vicryl sutures. The skin was reapproximated with 3-0 subcuticular strata fix suture. Skin tape and adhesive was applied. A sterile dressing was applied. The patient was awoken from sedation and transferred to recovery room in good condition. Blood loss was estimated at 50 mL. No complications were incurred. Sponge and needle counts were correct at the end of the case. Misael MATUTE assisted during the major components of this case to include exposure, bone resection, implantation, and closure.
--- NOTE | 2019-05-27 14:58 | XR ---
EXAMINATION TYPE: XR knee limited LT DATE OF EXAM: 05/27/2019 CLINICAL HISTORY: Left knee pain and arthritis status post total knee replacement. TECHNIQUE: Portable AP and crosstable lateral views of the left knee are obtained immediately postop eratively. COMPARISON: None FINDINGS: Metallic hardware from total left knee arthroplasty is seen and appears satisfactory in al ignment and position. There is evidence of recent surgery with diffuse subcutaneous gas and soft tis pepito swelling noted. IMPRESSION: METALLIC HARDWARE FROM TOTAL LEFT KNEE ARTHROPLASTY IS SATISFACTORY IN ALIGNMENT.
[2019-05-27] MEDS: HYDROcodone/APAP 7.5-325MG 1 EACH TAB PO PRN (16:01)
--- NOTE | 2019-05-27 17:08 | P.CONS ---
History of Present Illness - Reason for Consult Consult date: 05/27/19 hypertension Requesting physician: Paul Pham - Chief Complaint left knee pain - History of Present Illness Patient is a 68-year-old male past medical history of hypertension, arthritis, and prior prostate cancer status post seeding who presented for elective left total knee arthroplasty. He underwent the procedure on 05/27 without any immediate postoperative complications. Patient seen and examined at bedside with family present. He is not having any nausea, vomiting, lightheadedness, dizziness, chest pain, or shortness of breath. He does report some pain in his left knee but it is easing after receiving 2 [place]. He reports no recent cough, cold, fever, flu. He has been his normal state of health other than his chronic left knee pain. He recently had his right knee done about 6 weeks ago and that went well and he therefore decided to proceed with the left knee has been bothering him for years and he has failed nonoperative management. He was not requiring a cane or walker prior to surgery. After his last knee surgery home with home health therapy with was satisfied with [facility] and would like them again. Review of Systems Pertinent positives and negatives as discussed in HPI, a complete review of systems was performed and all other systems are negative. Past Medical History Past Medical History: Cancer, Hypertension, Osteoarthritis (OA), Prostate Disorder Additional Past Medical History / Comment(s): Hx prostate CA. History of Any Multi-Drug Resistant Organisms: None Reported Past Surgical History: Heart Catheterization, Joint Replacement, Prostate Surgery Additional Past Surgical History / Comment(s): Right knee replacement. Rt Thumb traumatic amputation. Radiation seed implant prostate 2011. Rt knee scope. Heart cath 2018, Past Anesthesia/Blood Transfusion Reactions: No Reported Reaction Past Psychological History: No Psychological Hx Reported Smoking Status: Former smoker Past Alcohol Use History: Rare Additional Past Alcohol Use History / Comment(s): Occ smoking, quit 1993; also Chewed tobacco, quit 2007. Past Drug Use History: None Reported Additional History: Lives with his , no assistive devices - Past Family History Father Family Medical History: Cancer Additional Family Medical History / Comment(s): prostate ca Sister(s) Family Medical History: Cancer Additional Family Medical History / Comment(s): breast ca Medications and Allergies Home Medications Medication Instructions Recorded Confirmed Type Hydrochlorothiazide 25 mg PO DAILY 05/17/19 05/17/19 History Losartan Potassium 100 mg PO DAILY 05/17/19 05/17/19 History Docusate [Colace] 100 mg PO DAILY #30 capsule 05/27/19 Rx HYDROcodone/APAP 7.5-325MG [[place] 1 - 2 each PO Q6HR PRN #56 tab 05/27/19 Rx 7.5] Allergies Allergy/AdvReac Type Severity Reaction Status Date / Time No Known Allergies Allergy Verified 05/27/19 10:22 Physical Exam Osteopathic Statement: *. No significant issues noted on an osteopathic structural exam other than those noted in the History and Physical/Consult. Vitals: Vital Signs Temp Pulse Pulse Resp BP Pulse Ox 05/27/19 16:00 97.4 F L 92 20 133/68 94 L 05/27/19 15:32 84 16 102/62 99 05/27/19 14:59 84 16 82/58 99 05/27/19 14:45 88 14 86/46 100 05/27/19 14:30 97.1 F L 88 18 86/49 99 05/27/19 14:13 97.1 F L 90 18 80/50 99 05/27/19 11:50 86 16 99/53 95 05/27/19 11:41 90 18 96/59 95 05/27/19 11:34 89 16 94/53 95 05/27/19 11:30 90 16 89/54 94 L 05/27/19 11:20 91 16 92/61 94 L 05/27/19 11:15 89 16 84/57 93 L 05/27/19 10:30 98.0 F 101 H 16 129/66 95 Intake and Output 05/27/19 05/27/19 05/27/19 06:59 14:59 22:59 Intake Total 2000 Output Total 50 Balance 1950 Intake: IV 2000 Output: Estimated Blood Loss 50 Other: Weight 129.1 kg 129.1 kg General: non toxic, no distress, appears at stated age, obese Derm: Dressing in place over left knee, no unusual rashes/lesions no unusual ecchymoses, warm, dry Head: atraumatic, normocephalic, symmetric Eyes: EOMI, no lid lag, anicteric sclera, pupils equal round reactive to light ENT: Nose and ears atraumatic, no thrush, no pharyngeal erythema Neck: No thyromegaly, no cervical lymphadenopathy, trachea midline, supple Mouth: no lip lesion, mucus membranes dry Cardiovascular: S1S2 reg, no murmur, positive posterior tibial pulse bilateral, no edema, capillary refill less than 2 seconds Lungs: CTA bilateral, no rhonchi, no rales , no accessory muscle use Abdominal: soft, nontender to palpation, no guarding, no appreciable organomegaly, normal bowel sounds Ext: Amputation of right thumb, no gross muscle atrophy, muscle strength 5 out of 5 in bilateral upper extremities grossly, no contractures, Neuro: CN II-XI grossly intact, light touch intact all 4 extremities, finger to nose within normal limits, Psych: Alert, oriented, appropriate affect Assessment and Plan Assessment: Patient is a 68-year-old male status post left total knee arthroplasty. Postoperative management per orthopedic surgery. Hypertension, currently controlled -Resume home hydrochlorothiazide and losartan a.m. -Follow blood pressures Morbid obesity with BMI 40.8. -Structured outpatient weight loss Arthritis -early mobilization - pain control - recent R TKA Per patient plan is home with home health morning, Xarelto was ordered for DVT prophylaxis. Thank you for allowing us to participate in the care of this pleasant patient. Do not hesitate to contact us with questions. Someone can be reached from the [facility] hospitalist group all hours of the day at [phone] or via [employer].
[2019-05-27] MEDS: ceFAZolin 3 GM in SODIUM CHLORIDE 0.9% 100 ML IVPB SCH (19:26)
[2019-05-27] MEDS ORDERED: SENNOSIDES-DOCUSATE SODIUM 1 EACH TAB PO SCH (21:00)
[2019-05-28] MEDS: ceFAZolin 3 GM in SODIUM CHLORIDE 0.9% 100 ML IVPB SCH (03:39)
[2019-05-28] MEDS: LACTATED RINGERS 1,000 ML IV SCH (05:12)
--- NOTE | 2019-05-28 05:56 | P.PN ---
Progress Note - Text Progress Note Date: 05/28/19 68-year-old male status post left total knee arthroplasty with adductor canal catheter. VAS ranging from 2-5 out of 10 in severity. Patient to [place] last night which helped significantly. No ambulation last night, no motor sensory deficits, catheter site looks clean dry and intact. Promote early ambulation today.
[2019-05-28] MEDS: HYDROcodone/APAP 7.5-325MG 1 EACH TAB PO PRN ×2 (06:00→11:26)
[2019-05-28 08:16] VITALS: RESP 17; TEMP 97.8
[2019-05-28 08:26] LABS: Basophils % (A) 0 %; Eosinophils % (A) 0 %; HCT 37.7 % (39.0-53.0); HGB 12.5 gm/dL (13.0-17.5); Lymphocytes # (A) 1.5 k/uL (1.0-4.8); Lymphocytes % (A) 11 %; MCH 30.4 pg (25.0-35.0); MCHC 33.2 g/dL (31.0-37.0); MCV 91.5 fL (80.0-100.0); Mean Platelet Volume 7.7; Monocytes # (A) 0.8 k/uL (0-1.0); Monocytes % (A) 6 %; Neutrophils # (A) 11.4 k/uL (1.3-7.7); Neutrophils % (A) 83 %; Platelet Count 260 k/uL (150-450); RBC 4.12 m/uL (4.30-5.90); RDW 13.3 % (11.5-15.5); WBC 13.8 k/uL (3.8-10.6)
--- NOTE | 2019-05-28 08:44 | P.PN ---
Subjective Progress Note Date: 05/28/19 Principal diagnosis: Status post left total knee arthroplasty Patient notes he is doing well. He denies shortness of breath, fever or chills. Objective - Vital Signs Vital signs: Vital Signs Temp 97.8 F 05/28/19 07:25 Pulse 89 05/28/19 07:25 Resp 17 05/28/19 07:25 BP 107/67 05/28/19 07:25 Pulse Ox 91 L 05/28/19 07:25 Intake & Output 05/27/19 05/28/19 05/28/19 18:59 06:59 18:59 Intake Total 2301 590 Output Total 50 350 Balance 2251 240 Weight 129.1 kg Intake: IV 2001 Oral 300 590 Output: Urine 350 Estimated Blood Loss 50 Other: Voiding Method Toilet # Voids 2 - Exam Left knee incision clean/dry/intact Negative Homans left lower extremity Neurovascular exam intact left lower extremity - Labs CBC & Chem 7: 05/28/19 06:48 Labs: Abnormal Lab Results - Last 24 Hours (Table) 05/28/19 Range/Units 06:48 WBC 13.8 H (3.8-10.6) k/uL RBC 4.12 L (4.30-5.90) m/uL Hgb 12.5 L (13.0-17.5) gm/dL Hct 37.7 L (39.0-53.0) % Neutrophils # 11.4 H (1.3-7.7) k/uL Assessment and Plan Assessment: Status post left total knee arthroplasty Plan: Discharge home today after therapy. Resume anticoagulation at home. Follow-up 2 weeks. Weightbearing as tolerated with walker. Time with Patient: Less than 30
--- NOTE | 2019-05-28 08:48 | P.DS ---
Providers Date of admission: 05/27/2019 Expected date of discharge: 05/28/19 Attending physician: Paul Pham Consults: 05/27/19 13:52 Consult Physician Routine Consulting Provider: Melissa Trejo Consult Reason/Comments: Medical Management Do you want consulting provider notified?: Yes Primary care physician: Sarah Sims MD Hospital Course: The patient underwent left total knee arthroplasty without complication. Postoperatively he was placed on anticoagulation. He was seen by therapy and cleared for home discharge. Upon discharge he was afebrile with stable vital si gns. His wound was clean/try/intact. Assessment: Status post left total knee arthroplasty Procedures: Left total knee arthroplasty Patient Condition at Discharge: Good Plan - Discharge Summary Discharge Rx Participant: Yes New Discharge Prescriptions: New Docusate [Colace] 100 mg PO DAILY #30 capsule HYDROcodone/APAP 7.5-325MG [[place] 7.5] 1 - 2 each PO Q6HR PRN #56 tab PRN Reason: Pain No Action Losartan Potassium 100 mg PO DAILY Hydrochlorothiazide 25 mg PO DAILY Discharge Medication List Hydrochlorothiazide 25 mg PO DAILY 05/17/19 [History] Losartan Potassium 100 mg PO DAILY 05/17/19 [History] Docusate [Colace] 100 mg PO DAILY #30 capsule 05/27/19 [Rx] HYDROcodone/APAP 7.5-325MG [[place] 7.5] 1 - 2 each PO Q6HR PRN #56 tab 05/27/19 [Rx] Follow up Appointment(s)/Referral(s): Bakari Wheat PAC [PHYSICIAN SENIOR PROJECT ENGINEER] - 2 Weeks Activity/Diet/Wound Care/Special Instructions: Orthopedic Discharge Instructions: 1. Wound care and infection precautions, keep incision dry and covered while showering, no lotions, creams, moisturizers. No soaking, pools, hot tubs. Do not scrub over incision. 2. Weight-bear as tolerated with walker / cane until follow-up. 3. Ice and elevate when necessary. Do not exceed 20 minutes per hour with ice pack. 4. Utilize compression sleeve until seen at first follow up appointment. 5. Pain meds and anticoagulants per prescription. 6. Pain medication has potential to cause constipation. Increase oral fluid and fiber intake. Contact primary care provider if you have not had a bowel movement within 48 hours after discharge. 7. No anti-inflammatory medication until discussed at first post operative visit, this including Motrin, Aleve, Mobic, Diclofenac. 8. Follow up in office at 2 weeks postop with Misael Wheat PA-C 9. Follow up with your primary care doctor 7-10 days after discharge. 10. Contact [facility] with any questions, . Resume anticoagulation as previously prescribed at home. Discharge Disposition: HOME WITH HOME HEALTH SERVICES
[2019-05-28] MEDS ORDERED: RIVAROXABAN 10 MG TAB PO SCH (09:00)
[2019-05-28] MEDS ORDERED: HYDROCHLOROTHIAZIDE 25 MG TAB PO SCH (09:00)
[2019-05-28] MEDS ORDERED: LOSARTAN 50 MG TAB PO SCH (09:00)
[2019-05-28 11:26] VITALS: BP 104/71; PULSE 87
--- NOTE | 2019-05-28 16:39 | P.PN ---
Subjective Progress Note Date: 05/28/19 (delayed charting seen at 1000) Principal diagnosis: knee pain Patient is a 68-year-old male past medical history of hypertension, arthritis, and prior prostate cancer status post seeding who presented for elective left total knee arthroplasty. He underwent the procedure on 05/27 without any immediate postoperative complications. Patient seen and examined at bedside. Feeling well. Pain is well controlled. No nausea, vomiting, chest pain or shortness of breath. Still no bowel movement. Objective - Vital Signs Vital signs: Vital Signs Temp 97.8 F 05/28/19 07:25 Pulse 87 05/28/19 11:25 Resp 17 05/28/19 07:25 BP 104/71 05/28/19 11:25 Pulse Ox 91 L 05/28/19 07:25 Intake & Output 05/27/19 05/28/19 05/28/19 18:59 06:59 18:59 Intake Total 2301 590 250 Output Total 50 350 Balance 2251 240 250 Weight 129.1 kg Intake: IV 2001 Oral 300 590 250 Output: Urine 350 Estimated Blood Loss 50 Other: Voiding Method Toilet Toilet # Voids 2 2 - Exam General: non toxic, no distress, appears at stated age, obese Derm: warm, dry Head: atraumatic, normocephalic, symmetric Eyes: EOMI, no lid lag, anicteric sclera Mouth: no lip lesion, mucus membranes moist Cardiovascular: S1S2 reg, no murmur, positive posterior tibial pulse bilateral, Lungs: CTA bilateral, no rhonchi, no rales , no accessory muscle use Abdominal: soft, nontender to palpation, no guarding, no appreciable organom egaly Ext: no gross muscle atrophy, 1+ edema left lower extremity, no contractures - Labs CBC & Chem 7: 05/28/19 06:48 Labs: Abnormal Lab Results - Last 24 Hours (Table) 05/28/19 Range/Units 06:48 WBC 13.8 H (3.8-10.6) k/uL RBC 4.12 L (4.30-5.90) m/uL Hgb 12.5 L (13.0-17.5) gm/dL Hct 37.7 L (39.0-53.0) % Neutrophils # 11.4 H (1.3-7.7) k/uL Assessment and Plan Assessment: Patient is a 68-year-old male status post left total knee arthropl asty. Postoperative management per orthopedic surgery. Hypertension, currently controlled -hydrochlorothiazide and losartan a.m. -Follow blood pressures Morbid obesity with BMI 40.8. -Structured outpatient weight loss Arthritis -early mobilization - pain control - recent R TKA Medically optimized for discharge at the discretion of ortho. Thank you for allowing us to participate in the care of this patient. Home medications have been addressed on medication reconciliation form. Follow-up with PCP in one week.
== END 2019-05-28 13:22 | disposition home health service (06) ==
LOC: OR 09:32 → 4SSUR 15:23 → OR 05-28 13:22
PROVIDERS: ATTEND Orthopaedic Surgery
DX: M17.12 Unilateral primary osteoarthritis, left knee (principal); I10 Essential (primary) hypertension; E66.01 Morbid (severe) obesity due to excess calories; Z85.46 Personal history of malignant neoplasm of prostate; Z96.651 Presence of right artificial knee joint; Z87.891 Personal history of nicotine dependence; Z89.011 Acquired absence of right thumb; Z68.41 Body mass index [BMI] 40.0-44.9, adult; Z79.899 Other long term (current) drug therapy; Z80.42 Family history of malignant neoplasm of prostate; Z80.3 Family history of malignant neoplasm of breast; Z82.49 Family history of ischemic heart disease and other diseases of the circulatory system
CPT/HCPCS: 97161; 64448; 76942; 85025; 73560; 27447; C1713; C1776; J2250; J0171; J1100; J0690 ×3; J2405; J3010; J1885; J2795 ×2; J0735

== ENCOUNTER → 2020-04-16 | Outpatient (CLI) | payer MEDICARE, OTHER | END | disposition home or self-care (01) | LOC: LABPAT 10:23 | PROVIDERS: ATTEND Orthopaedic Surgery | DX: Z01.812 Encounter for preprocedural laboratory examination (principal) | CPT/HCPCS: 87070 ==

== ENCOUNTER 2020-05-19 08:56 | Inpatient (IN) | payer MEDICARE, OTHER ==
[2020-05-14 13:16] VITALS: BMI 42.3
--- NOTE | 2020-05-18 09:28 | HP ---
HISTORY AND PHYSICAL CHIEF COMPLAINT: Right shoulder pain. 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 It has worsened recently. He is having pain with overhead use and at night. He notes it severely limits him. He has tried medications in addition to activity modifications without much relief. PAST MEDICAL HISTORY: Significant for hypertension, prostate cancer and arthritis. PAST SURGICAL HISTORY: Significant for bilateral total knee arthroplasty. CURRENT MEDICATIONS: Hydrochlorothiazide, losartan. He denies drug allergies. FAMILY HISTORY: Significant for heart disease and cancer. SOCIAL HISTORY: Significant for previous chewing tobacco use. 16 POINT REVIEW OF SYSTEMS: Otherwise reviewed and is noncontributory. PHYSICAL EXAMINATION: On examination, the patient is approximately 5 foot 10, 310 pounds of endomorphic habitus. HEENT: Exam is nonfocal. NECK: Supple. On examination of his right shoulder, he is tender about the anterior subacromial space and glenohumeral joint. He has moderate subacromial crepitus. Active range of motion forward elevation 95 degrees, external rotation with arm side 45 degrees, internal rotation to the buttock. Passively able to forward elevate him to 95 degrees. Motor strength is 5/5 for abduction and external rotation. Impingement test, NEER test, and Speed test are positive. His distal neurovascular appears intact in the right upper extremity. X-rays to include 3 views of the right shoulder obtained in the office show severe osteoarthrosis with [id number] changes. The humeral head to acromial distance appears to be maintained. IMPRESSION: 1. Right severe glenohumeral joint osteoarthrosis. 2. Increased body mass index. RECOMMENDATIONS: I talked to the patient and his at length regarding his condition and treatment options. At this point, he is quite limited and symptomatic because of pain related to his osteoarthrosis despite previous conservative measures. After thorough discussion, he opts to proceed with surgery. We will plan to proceed with right total shoulder arthroplasty. Risks and benefits were discussed at length in layman's terms. MMODL / IJN: [id number] /
[~2020-05-19 08:56] MED LIST changes: -ACETAMINOPHEN TAB 500 MG TAB PO ONE; +ACETAMINOPHEN TAB 500 MG TAB PO PRN; -DEXAMETHASONE SOD PHOSPHATE 10 MG/ML 1 ML VIAL IV ONE; -HYDROmorphone 0.5 MG/0.5 ML SYRINGE IVP PRN; +LIDOCAINE 1% (10MG/ML) FOR IV START INTRADERMA PRN; -MELOXICAM 7.5 MG TAB PO ONE; +MELOXICAM 7.5 MG TAB PO PRN; -MIDAZOLAM 2 MG/2 ML VIAL IV PRN; -TRANEXAMIC ACID 1,000 MG in SODIUM CHLORIDE 0.9% 100 ML IVPB ONE; +TRANEXAMIC ACID 1,000 MG in SODIUM CHLORIDE 0.9% 100 ML IVPB PRN; -ceFAZolin 3 GM in SODIUM CHLORIDE 0.9% 100 ML IVPB ONE; +ceFAZolin 3 GM in SODIUM CHLORIDE 0.9% 100 ML IVPB PRN
[2020-05-19] MEDS: LACTATED RINGERS 1,000 ML IV SCH (09:59)
[2020-05-19] MEDS ORDERED: DEXAMETHASONE SOD PHOSPHATE 4 MG/ML 1 ML VIAL IVP ONE (09:59)
[2020-05-19] MEDS ORDERED: fentaNYL (PF) 50 MCG/ML 2 ML AMP ONE (10:58)
[2020-05-19] MEDS ORDERED: SODIUM CHLORIDE 0.9% 100 ML BAG ONE (10:58)
[2020-05-19] MEDS ORDERED: KETAMINE 10 MG/ML 20 ML VIAL ONE (10:58)
[2020-05-19] MEDS ORDERED: NEOSTIGMINE 1 MG/ML 10 ML VIAL ONE (10:58)
[2020-05-19] MEDS ORDERED: GLYCOPYRROLATE 0.2 MG/ML 2 ML VIAL ONE (10:58)
[2020-05-19] MEDS ORDERED: ePHEDrine SULFATE/0.9% NACL/PF 50 MG/5 ML SYRINGE IV ONE (10:58)
[2020-05-19] MEDS ORDERED: PROPOFOL 10 MG/ML 20 ML VIAL IV ONE (10:58)
[2020-05-19] MEDS ORDERED: WATER FOR INJECTION, STERILE 10 ML VIAL IV ONE (10:58)
[2020-05-19] MEDS ORDERED: TRANEXAMIC ACID 1,000 MG/10 ML VIAL ONE (10:58)
[2020-05-19] MEDS ORDERED: ROCURONIUM 10 MG/ML (10 ML VIAL) IV ONE (10:58)
[2020-05-19] MEDS ORDERED: SUCCINYLCHOLINE CHLORIDE VIAL 200 MG/10 ML VIAL IV ONE (10:58)
[2020-05-19] MEDS ORDERED: LIDOCAINE 1% INJ 10MG/ML (20 ML MDV) ONE (10:58)
[2020-05-19] MEDS ORDERED: ceFAZolin 3,000 MG in SODIUM CHLORIDE 0.9% IRRIGATIO 3,000 ML IRRIGATION ONE (11:36)
[2020-05-19] MEDS ORDERED: SENNOSIDES-DOCUSATE SODIUM 1 EACH TAB PO PRN (13:07)
[2020-05-19] MEDS ORDERED: HYDROmorphone 0.5 MG/0.5 ML SYRINGE IVP PRN (13:07)
[2020-05-19] MEDS ORDERED: ONDANSETRON 4 MG/2 ML VIAL IVP PRN (13:07)
[2020-05-19] MEDS ORDERED: HYDROcodone/APAP 7.5-325MG 1 EACH TAB PO PRN ×2 (13:09)
--- NOTE | 2020-05-19 13:29 | P.OP ---
Date of Procedure: 05/19/20 Preoperative Diagnosis: Severe right glenohumeral joint osteoarthrosis Postoperative Diagnosis: Same Procedure(s) Performed: Right total shoulder arthroplasty Implants: [employer] size 12 press-fit humeral stem/size 14 body, 52 mm x 21 mm eccentric humeral head of 52 mm central pegged cemented glenoid component Anesthesia: carole CASSIDY Surgeon: Paul Pham Co Founder And Ceo #1: Bakari Wheat Estimated Blood Loss (ml): 100 Pathology: other (Humeral head) Condition: stable Disposition: PACU Indications for Procedure: The patient's 69-year-old male presents with progressive right shoulder pain secondary osteoarthrosis despite conservative treatment. A discussion of the risks and benefits of operative intervention versus continued conservative measures was made with patient. He opted to proceed with surgery. Operative risks to include infection, neurovascular injury, development of blood clots, fracture, instability, possible component loosening/failure and need for subsequent procedures was discussed. Informed consent was obtained. Operative Findings: As below Description of Procedure: The patient was brought to the operating room, and after induction of general anesthesia was placed in the beachchair position. The bony prominences were appropriately padded. The right upper extremity was prepped and draped in normal fashion. A deltopectoral incision was then made lateral to the coracoid process extending approximately 12 cm. The skin was incised sharply. Subcutaneous tissues were divided bluntly. Electrocautery was used for hemostasis. The deltopectoral interval was identified and the cephalic vein gently retracted laterally with the deltoid. Subdeltoid adhesions were bluntly dissected. A self-retaining retractor was placed. The clavipectoral fascia was opened and the conjoined tendon gently retracted medially. The upper one third of the pectoralis major was released to help facilitate exposure. The biceps was identified and the sheath was opened. The rotator interval was opened. The biceps was tenotomized and allowed to retract distally. The lesser tuberosity osteotomy was performed with a small sagittal saw. This completed with an osteotome. The humeral head was then exposed releasing the capsule off the humeral neck. The shoulder was gently dislocated. A starting hole was made in the head in line with the humeral shaft. The shaft was reamed by hand up to 12 mm. There is good distal chatter. The cutting guide was placed planning on 8 cut flush with the rotator cuff insertion and 30 of retroversion. The cutting block was pinned in place. The humeral head cut was then made. This measured most appropriately at 12 mm. Residual inferior osteophytes were carefully removed flush with the platinum cortical bone. A posterior glenoid retractor was placed. The glenoid was then exposed releasing the labrum from the 12-6 o'clock position. Residual labral tissue was removed. The glenoid sized most appropriate at 52 mm. A guidewire was then inserted planning on the appropriate version. The glenoid was reamed down to a bleeding bony surface. The central pedicle was drilled. The alignment guide was placed in the peripheral peg holes drilled. The trial size 52 mm glenoid was placed and was fully seated. There was good anterior to posterior and inferior to superior fit. The trial component was removed. Pulsatile lavage was utilized. The bony surface was dried. The peripheral peg holes were then pressurized with cement utilizing a syringe. Excess cement was removed. A central peg glenoid was then placed and was fully seated. This was gently impacted. This was held in place until the cement had sufficiently hardened. Attention was then paid again towards preparing the proximal humerus. The appropriate broach was placed in 30 of retroversion and was fully seated. An eccentric 52 x 21 mm humeral head was placed. The shoulder was gently reduced. It was taken through a range of motion. It was felt to be stable in flexion and extension with internal and external rotation. I felt there was adequate oriental orthodox of soft tissue tension. The shoulder was gently dislocated. The trial components were then removed. A #2 Ethibond was placed laterally for reattachment of the lesser tuberosity. The humeral stem was inserted in 30 of retroversion and was fully seated utilizing a 12 mm distal stem and 14 mm body. There was good rotational stability. The eccentric. 52 x 21 mm humeral head was gently impacted. The shoulder was then gently reduced and taken through range of motion and was felt to be stable. Pulsatile lavage was utilized. Lesser tuberosity was reattached utilizing #2 Ethibond suture. The rotator interval was closed with #2 Ethibond suture. She had minimal drainage at this point therefore a deep drain was not placed. The deltopectoral interval was closed with interrupted 2-0 Vicryl sutures. The subcu tissues were reapproximated with interrupted 2-0 Vicryl sutures. The skin was reprepped with 3-0 subcuticular Prolene suture. Steri- Strips were applied. A sterile dressing was applied in addition to a sling. The patient was then awoken from general anesthesia and transferred to recovery room in good condition. Blood loss was estimated at 100 mL. No complications were incurred. Sponge and needle counts were correct at the end the case. Misael MATUTE assisted during the major components the case to include exposure, resection, implantation, and closure.
[2020-05-19] MEDS: HYDROmorphone 0.5 MG/0.5 ML SYRINGE IVP PRN ×4 (13:40→14:13)
--- NOTE | 2020-05-19 14:19 | XR ---
Right shoulder HISTORY: Status post right total shoulder arthroplasty Single frontal view of the shoulder Patient is status post right shoulder arthroplasty. Surgical clip is over the bony glenoid. There is anatomic alignment. Lucency is present in the soft tissues. Right lung apex shows low lung volume. Th ere are overlying artifacts. IMPRESSION: Orthopedic follow-up.
--- NOTE | 2020-05-19 14:40 | P.ANPRN ---
Procedure Note - Anesthesia - Nerve Block Performed Right Interscalene Time Out Performed: Yes (:28) Date of Procedure: 05/19/20 Procedure Start Time: : Procedure Stop Time: : Location of Patient: CVL Indication: Acute Post-Operative Pain, Requested by Surgeon (Dr Pham) Sedation Type: Sedate with meaningful contact maintained Preparation: Sterile Prep Position: Supine Catheter: None Needle Types: Pajunk Needle Gauge: Other (see comment) (22g) Ultrasound used to visualize needle placement: Yes Ultrasound used to observe medication spread: Yes Injectate: 0.5% Ropivacaine (see comment for volume) (20cc) Blood Aspirated: No Pain Paresthesia on Injection Noted: No Resistance on Injection: Normal Image Stored and Saved: Yes Events: Uneventful and Well Tolerated
[2020-05-19] MEDS: ceFAZolin 3 GM in SODIUM CHLORIDE 0.9% 100 ML IVPB SCH (18:10)
[2020-05-20] MEDS: ceFAZolin 3 GM in SODIUM CHLORIDE 0.9% 100 ML IVPB SCH (03:08)
[2020-05-20 04:04] VITALS: PULSE 97
[2020-05-20] MEDS: LACTATED RINGERS 1,000 ML IV SCH (06:11)
[2020-05-20 06:40] LABS: Basophils % (A) 0 %; Eosinophils % (A) 0 %; HGB 14.3 gm/dL (13.0-17.5); Lymphocytes # (A) 2.1 k/uL (1.0-4.8); Lymphocytes % (A) 16 %; MCH 30.9 pg (25.0-35.0); MCHC 33.4 g/dL (31.0-37.0); MCV 92.7 fL (80.0-100.0); Monocytes # (A) 0.9 k/uL (0-1.0); Monocytes % (A) 7 %; Neutrophils # (A) 9.8 k/uL (1.3-7.7); Neutrophils % (A) 75 %; Platelet Count 235 k/uL (150-450); RBC 4.63 m/uL (4.30-5.90); RDW 13.1 % (11.5-15.5)
[2020-05-20 07:46] VITALS: BP 133/78; RESP 20; TEMP 98.6
--- NOTE | 2020-05-20 08:30 | P.PN ---
Subjective Progress Note Date: 05/20/20 Principal diagnosis: s/p right total shoulder arthroplasty Patient evaluated at bedside today, he is resting comfortably. Pain is well- controlled. He has no headaches, lightheadedness, chest pain or shortness of breath. Objective - Vital Signs Vital signs: Vital Signs Temp 98.6 F 05/20/20 07:45 Pulse 97 05/20/20 07:45 Resp 20 05/20/20 07:45 BP 133/78 05/20/20 07:45 Pulse Ox 92 L 05/20/20 07:45 Intake & Output 05/19/20 05/20/20 05/20/20 18:59 06:59 18:59 Intake Total 701 Output Total 100 Balance 601 Weight 136.6 kg Intake: IV 701 Output: Estimated Blood Loss 100 Other: Voiding Method Toilet Toilet # Voids 3 3 - Exam Right upper extremity: Postoperative removed, incision is clean, dry and intact. There is some mild ecchymosis and swelling of the upper arm. Sensation to light touch is intact throughout the upper extremity, able to extend and flex the wrist with no difficulty, is able to extend and flex the elbow. Shoulder motion was not assessed. Radial and ulnar pulses are 2+. - Labs CBC & Chem 7: 05/20/20 06:14 05/19/20 09:45 Labs: Abnormal Lab Results - Last 24 Hours (Table) 05/20/20 Range/Units 06:14 WBC 13.0 H (3.8-10.6) k/uL Neutrophils # 9.8 H (1.3-7.7) k/uL Assessment and Plan Assessment: Status post right total shoulder arthroplasty Plan: Pain control, plan for discharge home on oral [place] 5 mg/325 mg DVT prophylaxis, aspirin 325 mg daily for 2 weeks Patient does have stool softeners at home Wound care instructions were discussed along with sling instructions Plan for follow-up in the outpatient setting in 2 weeks Time with Patient: Less than 30
--- NOTE | 2020-05-20 08:33 | P.DS ---
Providers Date of admission: 05/19/20 08:56 Expected date of discharge: 05/20/20 Attending physician: Paul Pham Consults: 05/19/20 13:09 Consult Physician Routine Consulting Provider: Sarah Sims Consult Reason/Comments: Medical Management Do you want consulting provider notified?: Yes Primary care physician: Sarah Sims MD Hospital Course: Date of admission: 05/19/2020 Date of discharge: 05/20/2020 Admission diagnosis: Status post right a total shoulder arthroplasty Discharge diagnosis: Same Attending physician: Dr. Pham Surgical procedures: Right total shoulder arthroplasty Brief history: Patient is a 69-year-old male with a history of aggressive primary right shoulder osteoarthritis. At this point patient has failed conservative treatment measures and has opted to proceed with a elective right total shoulder arthroplasty. Hospital course: Details of patient's surgery can be found in operative report. Patient tolerated the procedure well and was subsequently transported to orthopedic floor. Patient's orthopeidc and medical care was provided daily. Patient had daily laboratory tests performed for evaluation of overall blood counts. Patient had daily physical therapy to include strengthening range of motion as well as education with walker ambulation. Patient was treated with aspirin for their postoperative DVT prophylaxis during their inpatient stay. Patient was noted to have a relatively uneventful postoperative course. Patient reported satisfactory pain control with oral pain medications by postoperative day 0. Patient showed satisfactory progress with physical therapy. Patient moved steadily through the program and had no difficulty meeting the goals by postoperative day 1. Given patient's otherwise satisfactory course and having met physical therapy goals, plan is to discharge patient home on postoperative day 1. Discharge condition/disposition: Patient will be discharged home in stable condition. Discharge medications: Instructions are given on resumption of patient's normal daily medications per primary care recommendation, in addition patient will be prescribed [place] 5 mg/325 mg, aspirin 325 mg. Discharge instructions: 1. Wound care and infection precautions, keep incision dry and covered while showering, no lotions, creams, moisturizers. No soaking, tubs, pools, hottubs. Do not scrub over the incision. 2. Utilize arm sling 3. Ice and elevate when necessary. Do not exceed 20 minutes per hour with ice pack. 4. Utilize compression sleeve until seen at first follow up appointment. 7. Pain meds and anticoagulants per prescription. 8. Pain medication has potential to cause constipation. Increase oral fluid and fiber intake. Contact primary care provider if you have not had a bowel movement within 48 hours after discharge 9. No anti-inflammatory medication until discussed at first post operative visit, this including Motrin, Aleve, Mobic, Diclofenac 10. Follow up in office at 2 weeks postop with Misael Wheat PA-C 11. Follow up with your primary care doctor 7-10 days after discharge. 12. Contact [facility] with any questions, . Procedures: Right total shoulder arthroplasty Patient Condition at Discharge: Good Plan - Discharge Summary Discharge Rx Participant: Yes New Discharge Prescriptions: New Aspirin 325 mg PO DAILY #30 tab Hydrocodone/Acetaminophen [[place] 5-325] 1 each PO Q6HR PRN #28 tab PRN Reason: Pain No Action Losartan/Hydrochlorothiazide [Hyzaar 100-25 Tablet] 1 tab PO QAM Multivitamins, Thera [Multivitamin (formulary)] 1 tab PO DAILY Discharge Medication List Losartan/Hydrochlorothiazide [Hyzaar 100-25 Tablet] 1 tab PO QAM 05/14/20 [History] Multivitamins, Thera [Multivitamin (formulary)] 1 tab PO DAILY 05/14/20 [History] Aspirin 325 mg PO DAILY #30 tab 05/20/20 [Rx] Hydrocodone/Acetaminophen [[place] 5-325] 1 each PO Q6HR PRN #28 tab 05/20/20 [Rx] Follow up Appointment(s)/Referral(s): Bakari Wheat, VERONICA [PHYSICIAN LETTER CARRIER] - 2 Weeks Activity/Diet/Wound Care/Special Instructions: Orthopedic Discharge Instructions: 1. Wound care and infection precautions, keep incision dry and covered while showering, no lotions, creams, moisturizers. No soaking, pools, hot tubs. Do not scrub over incision. 2. Utilize arm sling 3. Ice and elevate when necessary. Do not exceed 20 minutes per hour with ice pack. 4. Utilize compression sleeve until seen at first follow up appointment. 5. Pain meds and anticoagulants per prescription. 6. Pain medication has potential to cause constipation. Increase oral fluid and fiber intake. Contact primary care provider if you have not had a bowel movement within 48 hours after discharge. 7. No anti-inflammatory medication until discussed at first post operative visit, this including Motrin, Aleve, Mobic, Diclofenac. 8. Follow up in office at 2 weeks postop with Misael Wheat PA-C 9. Follow up with your primary care doctor 7-10 days after discharge. 10. Contact [facility] with any questions, . Discharge Disposition: HOME SELF-CARE
[2020-05-20] MEDS ORDERED: ASPIRIN 325 MG TAB PO SCH (09:00)
== END 2020-05-20 11:06 | disposition home or self-care (01) | DRG 483 ==
LOC: 2ORMAIN 08:56 → EDSTATUS 10:45 → 4SSUR 14:37
PROVIDERS: ADMIT Orthopaedic Surgery; ATTEND Orthopaedic Surgery
PROC: 0RRJ0JZ Replacement of Right Shoulder Joint with Synthetic Substitute, Open Approach (ICD-10-PCS; principal; 2020-05-19 10:45)
DX: M19.011 Primary osteoarthritis, right shoulder (principal); I10 Essential (primary) hypertension; Z85.46 Personal history of malignant neoplasm of prostate; Z87.891 Personal history of nicotine dependence; Z96.653 Presence of artificial knee joint, bilateral; Z82.49 Family history of ischemic heart disease and other diseases of the circulatory system; Z80.9 Family history of malignant neoplasm, unspecified
CPT/HCPCS: 64415; 76942; 84132; 85025; 88305; 88311

== ENCOUNTER → 2021-03-22 | Outpatient (CLI) | payer MEDICARE, OTHER | END | disposition home or self-care (01) | LOC: LABPAT 11:22 | PROVIDERS: ATTEND Orthopaedic Surgery | DX: Z01.812 Encounter for preprocedural laboratory examination (principal); M19.012 Primary osteoarthritis, left shoulder; Z22.322 Carrier or suspected carrier of Methicillin resistant Staphylococcus aureus | CPT/HCPCS: 87070 ==

== ENCOUNTER 2021-05-04 05:52 | Day surgery (SDC) | payer MEDICARE, OTHER ==
[2021-04-29 13:35] VITALS: BMI 41.5
--- NOTE | 2021-05-03 10:01 | HP ---
HISTORY AND PHYSICAL CHIEF COMPLAINT: Left shoulder pain. 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 He is having a difficult time with any attempted overhead use and at night. He has tried medications in addition to other modalities, without much relief. He notes it severely limits him. PAST MEDICAL HISTORY: Significant for hypertension and prostate cancer. PAST SURGICAL HISTORY: Significant for right knee arthroscopy and left knee arthroscopy in addition to right total shoulder arthroplasty. CURRENT MEDICATIONS: Hydrochlorothiazide and losartan. ALLERGIES: HE DENIES DRUG ALLERGIES. FAMILY HISTORY: Significant for cancer and heart disease. SOCIAL HISTORY: Significant for previous chewing tobacco use. REVIEW OF SYSTEMS: Sixteen-point review of systems is otherwise reviewed and is noncontributory. PHYSICAL EXAMINATION: On examination, the patient is approximately 5 feet 10 inches, 291 pounds of endomorphic habitus. HEENT exam is nonfocal. Neck is supple. On examination of his left shoulder, he is tender about the anterior glenohumeral joint. He has active range of motion with forward elevation 125 degrees, external rotation with the arm side 55 degrees, internal rotation to L5. Motor strength is 5/5 for abduction and external rotation. His distal neurovascular exam appears intact in the left upper extremity. X-rays to include AP and scapular outlet views of the left shoulder obtained in the office show severe osteoarthrosis with [id number] changes. Subchondral sclerosis is noted. The humeral head to acromial distance appears to be maintained. IMPRESSION: Severe left glenohumeral joint osteoarthrosis. RECOMMENDATIONS: I talked to the patient at length regarding his condition along with treatment options. At this point he is quite symptomatic and limited because of pain related to the osteoarthrosis despite conservative measures. After a thorough discussion, he opted to proceed with surgery. We will plan to proceed with left total shoulder arthroplasty. Risks and benefits were discussed at length in layman's terms. MMODL / IJN: [id number] /
[~2021-05-04 05:52] MED LIST changes: -LIDOCAINE 1% (10MG/ML) FOR IV START INTRADERMA PRN; -ONDANSETRON 4 MG/2 ML VIAL IVP ONE
[2021-05-04] MEDS ORDERED: HYDROmorphone 0.5 MG/0.5 ML SYRINGE IVP PRN (06:02)
[2021-05-04] MEDS ORDERED: MIDAZOLAM 2 MG/2 ML VIAL IV PRN (06:02)
[2021-05-04] MEDS ORDERED: ONDANSETRON 4 MG/2 ML VIAL IVP ONE (06:02)
[2021-05-04] MEDS ORDERED: DEXAMETHASONE SOD PHOSPHATE 4 MG/ML 1 ML VIAL IV ONE (06:02)
[2021-05-04] MEDS: LACTATED RINGERS 1,000 ML IV SCH (06:59)
[2021-05-04] MEDS ORDERED: MIDAZOLAM 2 MG/2 ML VIAL IVP ONE (07:09)
[2021-05-04] MEDS ORDERED: fentaNYL (PF) 50 MCG/ML 5 ML AMP IVP ONE ×2 (07:09)
[2021-05-04] MEDS ORDERED: SODIUM CHLORIDE 0.9% 100 ML BAG ONE (07:43)
[2021-05-04] MEDS ORDERED: PROPOFOL 10 MG/ML 20 ML VIAL IV ONE (07:43)
[2021-05-04] MEDS ORDERED: ePHEDrine 50 MG/ML 1 ML AMP ONE (07:43)
[2021-05-04] MEDS ORDERED: MIDAZOLAM 2 MG/2 ML VIAL ONE (07:43)
[2021-05-04] MEDS ORDERED: SUCCINYLCHOLINE CHLORIDE VIAL 200 MG/10 ML VIAL IV ONE (07:43)
[2021-05-04] MEDS ORDERED: TRANEXAMIC ACID 1,000 MG/10 ML VIAL ONE (07:43)
[2021-05-04] MEDS ORDERED: NEOSTIGMINE 1 MG/ML 10 ML VIAL ONE (07:43)
[2021-05-04] MEDS ORDERED: .fentaNYL (PF) 50 MCG/ML 2 ML AMP ONE (07:43)
[2021-05-04] MEDS ORDERED: ROCURONIUM 10 MG/ML (5 ML VIAL) IV ONE (07:43)
[2021-05-04] MEDS ORDERED: PHENYLEPHRINE-0.9% NACL SYG 1,000 MCG/10 ML SYRINGE ONE (07:43)
[2021-05-04] MEDS ORDERED: GLYCOPYRROLATE 0.2 MG/ML 2 ML VIAL ONE (07:43)
[2021-05-04] MEDS ORDERED: ROPIVACAINE 5 MG/ML 30 ML VIAL ONE (07:43)
[2021-05-04] MEDS ORDERED: LIDOCAINE 1% INJ 10MG/ML (20 ML MDV) ONE (07:43)
[2021-05-04] MEDS ORDERED: ceFAZolin 1,000 MG in SODIUM CHLORIDE 0.9% 1,000 ML IRRIGATION ONE (08:24)
[2021-05-04] MEDS ORDERED: SENNOSIDES-DOCUSATE SODIUM 1 EACH TAB PO PRN (09:42)
[2021-05-04] MEDS ORDERED: HYDROmorphone 0.2 MG/1 ML SYRINGE IVP PRN (09:42)
[2021-05-04] MEDS ORDERED: HYDROcodone/APAP 5-325MG 1 EACH TAB PO PRN (09:42)
[2021-05-04] MEDS ORDERED: HYDROcodone/APAP 7.5-325MG 1 EACH TAB PO PRN (09:46)
--- NOTE | 2021-05-04 09:47 | P.ANPRN ---
Procedure Note - Anesthesia - Nerve Block Performed Left Interscalene Single Time Out Performed: Yes ([id number]) Date of Procedure: 05/04/21 Procedure Start Time: :09 Procedure Stop Time: :15 Location of Patient: PreOp Indication: Acute Post-Operative Pain, Requested by Surgeon Specifically requested for management of pain by : Paul Pham Sedation Type: Sedate with meaningful contact maintained Preparation: Sterile Prep, Sterile Dressing Position: Supine Catheter: None Needle Types: Pajunk Needle Gauge: 21 Ultrasound used to visualize needle placement: Yes Ultrasound used to observe medication spread: Yes Injectate: 0.5% Ropivacaine (see comment for volume) (30cc) Blood Aspirated: No Pain Paresthesia on Injection Noted: No Resistance on Injection: Normal Image Stored and Saved: Yes Events: Uneventful and Well Tolerated
[2021-05-04] MEDS ORDERED: LACTATED RINGERS 1,000 ML IV ONE (09:48)
--- NOTE | 2021-05-04 10:07 | P.OP ---
Date of Procedure: 05/04/21 Preoperative Diagnosis: Severe left glenohumeral joint osteoarthrosis Postoperative Diagnosis: Same Procedure(s) Performed: Left total shoulder arthroplasty Implants: [employer] size 14 press-fit humeral stem was size 14 body, 52 x 15 mm eccentric humeral head, 52 mm cemented pegged glenoid component. Anesthesia: carole CASSIDY Surgeon: Paul Pham Knitting Machine Fixer #1: Miguel Herrera Estimated Blood Loss (ml): 200 Pathology: other (Humeral head) Condition: stable Disposition: PACU Indications for Procedure: The patient is a 70-year-old male presents with progressive left shoulder pain secondary to osteoarthrosis despite conservative measures. A discussion of the risks and benefits of operative intervention versus continued conservative measures was made with patient. He opted pursue a surgical operative risks to include infection, neurovascular injury, fracture, component loosening, instability, possible need for subsequent procedures was discussed. Informed consent was obtained. Operative Findings: As below Description of Procedure: The patient was brought to the operating room, and after induction of general anesthesia was placed in the beachchair position. The bony prominences were appropriately padded. The right upper extremity was prepped and draped in normal fashion. A deltopectoral incision was then made lateral to the coracoid process extending approximately 12 cm. The skin was incised sharply. Subcutaneous tissues were divided bluntly. Electrocautery was used for hemostasis. The deltopectoral interval was identified and the cephalic vein gently retracted laterally with the deltoid. Subdeltoid adhesions were bluntly dissected. A self-retaining retractor was placed. The clavipectoral fascia was opened and the conjoined tendon gently retracted medially. The upper one third of the pectoralis major was released to help facilitate exposure. The biceps was identified and the sheath was opened. The rotator interval was opened. The biceps was tenotomized and allowed to retract distally. A subscapularis peel was performed. The humeral head was then exposed releasing the capsule off the humeral neck. The shoulder was gently dislocated. A starting hole was made in the head in line with the humeral shaft. The shaft was reamed by hand up to [] mm. There is good distal chatter. The cutting guide was placed planning on a cut flush with the rotator cuff insertion and 30 of retroversion. The cutting block was pinned in place. The humeral head cut was then made. This measured most appropriately at 52 x 15 mm. Residual inferior osteophytes were carefully removed flush with the [place] cortical bone. A posterior glenoid retractor was placed. The glenoid was then exposed releasing the labrum from the 6-12 o'clock position. Residual labral tissue was removed. The glenoid sized most appropriate 52 mm. A guidewire was then inserted planning on the appropriate version. The glenoid was reamed down to a bleeding bony surface. The central pedicle was drilled. The alignment guide was placed in the peripheral peg holes drilled. The trial size 52 mm glenoid was placed and was fully seated. There was good anterior to posterior and inferior to superior fit. The trial component was removed. Pulsatile lavage was utilized. The bony surface was dried. The peripheral peg holes were then pressurized with cement utilizing a syringe. Excess cement was removed. A central peg glenoid was then placed and was fully seated. This was gently impacted. This was held in place until the cement had sufficiently hardened. Attention was then paid again towards preparing the proximal humerus. The appropriate broach was placed in 30 of retroversion and was fully seated. An eccentric 52 x 15 mm humeral head was placed. The shoulder was gently reduced. It was taken through a range of motion. It was felt to be stable in flexion and extension with internal and external rotation. I felt there was adequate alevism of soft tissue tension. The shoulder was gently dislocated. The trial components were then removed. A #2 Ethibond was placed laterally for reattachment of the subscapularis. The humeral stem was inserted in 30 of retroversion and was fully seated. There was good rotational stability. The eccentric 52 x 15 mm humeral head was gently impacted. The shoulder was then gently reduced and taken through range of motion and was felt to be stable. Pulsatile lavage was utilized. The subscapularis was reattached utilizing #2 Ethibond suture. The rotator interval was closed with #2 Ethibond suture. He had minimal drainage at this point therefore a deep drain was not placed. The deltopectoral interval was closed with interrupted 2-0 Vicryl sutures. The subcu tissues were juliette pproximated with interrupted 2-0 Vicryl sutures. The skin was reapproximated with 3-0 subcuticular Prolene suture. Steri-Strips were applied. A sterile dressing was applied in addition to a sling. The patient was then awoken from general anesthesia and transferred to recovery room in good condition. Blood loss was estimated at 200 mL. No complications were incurred. Sponge and needle counts were correct at the end the case. Miguel MATUTE assisted during the major components the case to include positioning, exposure, resection, implantation, and closure.
--- NOTE | 2021-05-04 10:42 | XR ---
EXAMINATION TYPE: XR shoulder limited LT DATE OF EXAM: 05/04/2021 CLINICAL HISTORY: Left shoulder pain and osteoarthritis. TECHNIQUE: Single frontal portable view of left shoulder is obtained postoperatively. COMPARISON: Left shoulder x-ray April 16, 2020 FINDINGS: [place] osseous structures are demineralized. Metallic hardware from shoulder surgery is sat isfactory in position on frontal projection. Medial surgical clip. Surrounding subcutaneous air consistent with recent surgery noted. Left basilar atelectatic change is present. IMPRESSION: As above.
[2021-05-04] MEDS: ceFAZolin 3 GM in SODIUM CHLORIDE 0.9% 100 ML IVPB SCH (16:13)
[2021-05-04] MEDS: BENZOCAINE/MENTHOL LOZENG 1 EACH LOZENGE MUCOUS MEM PRN ×2 (17:19→22:02)
--- NOTE | 2021-05-04 17:38 | P.CONS ---
History of Present Illness - Reason for Consult Consult date: 05/04/21 HTN Requesting physician: Paul Pham - Chief Complaint shoulder pain - History of Present Illness Patient is a 70-year-old male with hypertension, osteoarthritis, and prior prostate cancer status post left total shoulder arthroplasty. He tolerated the procedure well without any immediate postoperative complications. We are consulted for medical management. Patient seen and examined at bedside. He continues to have numbness in his left shoulder. He denies any postoperative nausea, vomiting, lightheadedness or dizziness. He does complain of some sore throat. He denies any recent cough, cold, fever, flu. Pertinent positives and negatives as discussed in HPI, a complete review of systems was performed and all other systems are negative. General: non toxic, no distress, appears at stated age Derm: warm, dry Head: atraumatic, normocephalic, symmetric Eyes: EOMI, no lid lag, anicteric sclera, pupils equal round reactive to light ENT: Nose and ears atraumatic, no thrush, + pharyngeal erythema, + petechia posterior fair not Neck: No thyromegaly, no cervical lymphadenopathy, trachea midline, supple Mouth: no lip lesion, mucus membranes moist Cardiovascular: S1S2 reg, no murmur, positive posterior tibial pulse bilateral, no edema, capillary refill less than 2 seconds Lungs: clear to ascultation bilateral, no ronchi, no rales, no wheeze, no accessory muscle use Abdominal: soft, nontender to palpation, no guarding, no appreciable organomegaly, normal bowel sounds Ext: no gross muscle atrophy, muscle strength muscle strength 5 out of 5 in all 4 extremities, no contractures Neuro: CN II-XI grossly intact, light touch intact all 4 extremities, finger to nose within normal limits, Psych: Alert, oriented, appropriate affect Patient is a 70-year-old male status post left total shoulder arthroplasty-being managed by surgery Hypertension controlled -Resume losartan/hydrochlorothiazide Osteoarthritis -Resume Glucosamine/chondroitin okay with surgery Morbid obesity with BMI 42.1 -Outpatient structured weight loss Thank you for allowing us to participate in the care of this pleasant patient. Do not hesitate to contact us with questions. Someone can be reached from the [facility] hospitalist group all hours of the day at [phone] or via [employer]. Past Medical History Past Medical History: Cancer, Hypertension, Osteoarthritis (OA) Additional Past Medical History / Comment(s): Hx Prostate Cancer(2011). History of Any Multi-Drug Resistant Organisms: None Reported Past Surgical History: Heart Catheterization, Joint Replacement, Orthopedic Surgery, Prostate Surgery Additional Past Surgical History / Comment(s): Right knee arthroscopy, bilateral knee replacements, right thumb traumatic amputation, radiation seed implant for prostate cancer(2012), right shoulder replacement. Past Anesthesia/Blood Transfusion Reactions: No Reported Reaction Past Psychological History: No Psychological Hx Reported Smoking Status: Former smoker Past Alcohol Use History: Rare Additional Past Alcohol Use History / Comment(s): Occasional smoker, quit in 1993, also chewed tobacco, quit in 2007. Past Drug Use History: None Reported - Past Family History Father Family Medical History: Cancer Additional Family Medical History / Comment(s): Prostate cancer. Sister(s) Family Medical History: Cancer Additional Family Medical History / Comment(s): Breast cancer. Brother(s) Family Medical History: Cancer Additional Family Medical History / Comment(s): Prostate cancer. Medications and Allergies Home Medications Medication Instructions Recorded Confirmed Type Losartan/Hydrochlorothiazide 1 tab PO QAM 05/14/20 05/04/21 History [Hyzaar 100-25 Tablet] Multivitamins, Thera [Multivitamin 1 tab PO DAILY 05/14/20 05/04/21 History (formulary)] Glucos Sul 2Kcl/MSM/Chond/C/Mn 1 each PO DAILY 04/29/21 05/04/21 History [Glucosamine Chondroitin Cap] Allergies Allergy/AdvReac Type Severity Reaction Status Date / Time No Known Allergies Allergy Verified 05/04/21 06:16 Physical Exam Osteopathic Statement: *. No significant issues noted on an osteopathic structural exam other than those noted in the History and Physical/Consult. Vitals: Vital Signs Temp Pulse Pulse Resp BP Pulse Ox 05/04/21 15:38 97.7 F 106 H 19 127/78 94 L 05/04/21 12:55 97.7 F 88 18 122/76 93 L 05/04/21 12:30 85 18 98/51 95 05/04/21 12:00 75 18 91/52 97 05/04/21 11:31 64 18 91/55 94 L 05/04/21 11:01 69 18 92/52 94 L 05/04/21 10:46 67 18 96/61 93 L 12/07/21 10:31 68 18 98/64 96 05/04/21 10:16 77 18 99/58 94 L 05/04/21 10:01 96.8 F L 82 18 100/60 94 L 05/04/21 07:17 75 18 108/64 96 05/04/21 06:26 97.7 F 89 20 119/69 94 L Intake and Output 05/04/21 05/04/21 05/04/21 06:59 14:59 22:59 Intake Total 300 1301 Output Total 200 Balance 300 1101 Intake: IV 300 1301 Output: Estimated Blood Loss 200 Other: Voiding Method Toilet Weight 133.1 kg
[2021-05-04 18:54] VITALS: RESP 18
[2021-05-05] MEDS: ceFAZolin 3 GM in SODIUM CHLORIDE 0.9% 100 ML IVPB SCH (03:55)
[2021-05-05] MEDS: BENZOCAINE/MENTHOL LOZENG 1 EACH LOZENGE MUCOUS MEM PRN ×2 (06:00→11:37)
[2021-05-05] MEDS: LACTATED RINGERS 1,000 ML IV SCH (06:03)
[2021-05-05 06:18] VITALS: BP 109/69; PULSE 93; TEMP 98.5
[2021-05-05 07:06] LABS: Basophils % (A) 0 %; Eosinophils # (A) 0.1 k/uL (0-0.7); Eosinophils % (A) 1 %; HCT 45.8 % (39.0-53.0); HGB 15.6 gm/dL (13.0-17.5); Lymphocytes # (A) 2.6 k/uL (1.0-4.8); Lymphocytes % (A) 18 %; MCH 31.4 pg (25.0-35.0); MCHC 34.1 g/dL (31.0-37.0); MCV 92.2 fL (80.0-100.0); Mean Platelet Volume 9.3; Monocytes # (A) 1.2 k/uL (0-1.0); Monocytes % (A) 8 %; Neutrophils # (A) 10.7 k/uL (1.3-7.7); Neutrophils % (A) 72 %; Platelet Count 216 k/uL (150-450); RBC 4.97 m/uL (4.30-5.90); RDW 13.7 % (11.5-15.5); WBC 14.8 k/uL (3.8-10.6)
[2021-05-05] MEDS ORDERED: LOSARTAN-HCTZ 50-12.5 MG 1 EACH TAB PO SCH (09:00)
[2021-05-05] MEDS ORDERED: ASPIRIN 325 MG TAB PO STA (10:35)
--- NOTE | 2021-05-05 10:43 | P.DS ---
Providers Date of admission: 05/04/2021 Expected date of discharge: 05/05/21 Attending physician: Paul Pham Consults: 05/04/21 09:48 Consult Physician Routine Consulting Provider: Melissa Trejo Consult Reason/Comments: Medical Management s/p left total shoulder arthroplasty Do you want consulting provider notified?: Yes Primary care physician: Sarah Sims MD Hospital Course: Date of admission: 05/04/2021 Date of discharge: 05/05/2021 Admission diagnosis: Left shoulder osteoarthritis Discharge diagnosis: Same Attending physician: Dr. Pham Surgical procedures: Left total shoulder arthroplasty Brief history: Patient is a 70-year-old male with a history of progressive primary left shoulder osteoarthritis. At this point patient has failed conservative treatment measures and has opted to proceed with a elective left total shoulder arthroplasty. Hospital course: Details of patient's surgery can be found in operative report. Patient tolerated the procedure well and was subsequently transported to orthopedic floor. Patient's orthopeidc and medical care was provided daily. Patient had daily laboratory tests performed for evaluation of overall blood counts. Patient had daily physical therapy to include strengthening range of motion as well as education with walker ambulation. Patient was treated with Asprin for their postoperative DVT prophylaxis during their inpatient stay. Patient was noted to have a relatively uneventful postoperative course. Patient reported satisfactory pain control with oral pain medications by postoperative day 1. Patient showed satisfactory progress with physical therapy. Patient moved steadily through the program and had no difficulty meeting the goals by postoperative day 1. Given patient's otherwise satisfactory course and having met physical therapy goals, plan is to discharge patient home on postoperative day 1. Discharge condition/disposition: Patient will be discharged home in stable condition. Discharge medications: Instructions are given on resumption of patient's normal daily medications per primary care recommendation, in addition patient will be prescribed aspirin 325 mg daily; stool softener patient says he has this at home; pain medication patient says he has this at home as well. Discharge instructions: 1. Wound care and infection precautions, keep incision dry and covered while showering, no lotions, creams, moisturizers. No soaking, tubs, pools, hottubs. Do not scrub over the incision. 2. Weight-bear as tolerated. NWB left arm. Keep in sling. Pendular exercises 3. Ice when necessary. Do not exceed 20 minutes per hour with ice pack. 4. Visiting nursing care. 5. Physical therapy . 6. Pain meds and anticoagulants per prescription. 7. Pain medication has potential to cause constipation. Increase oral fluid and fiber intake. Contact primary care provider if you have not had a bowel movement within 48 hours after discharge 8. No anti-inflammatory medication until discussed at first post operative visit, this including Motrin, Aleve, Mobic, Diclofenac. 9. Follow up in office at 2 weeks postop with Misael Wheat PA-C / Miguel Herrera PA-C 10. Follow up with your primary care doctor 7-10 days after discharge. 11. Contact [facility] with any questions, . Keep incision clean, dry, intact. While showering, cover incision with Saran wrap or plastic bag. Keep the Steri-Strips on until follow-up appointment in office in 2 weeks. Medications: Aspirin 325 mg daily 30 days; patient already has stool softener and pain medication at home Assessment: Left shoulder osteoarthritis Procedures: Left total shoulder arthroplasty Patient Condition at Discharge: Good Plan - Discharge Summary Discharge Rx Participant: No New Discharge Prescriptions: Continue Losartan/Hydrochlorothiazide [Hyzaar 100-25 Tablet] 1 tab PO QAM Multivitamins, Thera [Multivitamin (formulary)] 1 tab PO DAILY Glucos Sul 2Kcl/MSM/Chond/C/Mn [Glucosamine Chondroitin Cap] 1 each PO DAILY Discharge Medication List Losartan/Hydrochlorothiazide [Hyzaar 100-25 Tablet] 1 tab PO QAM 05/14/20 [History] Multivitamins, Thera [Multivitamin (formulary)] 1 tab PO DAILY 05/14/20 [Histo ry] Glucos Sul 2Kcl/MSM/Chond/C/Mn [Glucosamine Chondroitin Cap] 1 each PO DAILY 04/29/21 [History] Follow up Appointment(s)/Referral(s): Sarah Sims MD [Primary Care Provider] - 1 Week Activity/Diet/Wound Care/Special Instructions: Activity: [] Diet: heart healthy Wound Care: [] Special Instructions: Cold drinks and food will help with throat pain Discharge Disposition: HOME SELF-CARE
--- NOTE | 2021-05-05 12:11 | P.PN ---
Subjective Progress Note Date: 05/05/21 Principal diagnosis: Left total shoulder arthroplasty Patient was seen at bedside this morning resting comfortably lying semirecumbent in bed. Patient does have sling on left arm. Patient says he is ready to go home today. He says he is having some minimal pain in the left shoulder. Patient says he did have his right shoulder replaced about one year ago and only took pain medications for a couple days after surgery. Patient says he has not had bowel movement yet, however, patient says he has been passing gas. Patient denies chest pain, fever, shortness of breath, nausea, vomiting, change in vision, loss of bowel/bladder control. Objective - Vital Signs Vital signs: Vital Signs Temp 98.5 F 05/05/21 05:00 Pulse 93 05/05/21 05:00 Resp 18 05/05/21 05:00 BP 109/69 05/05/21 05:00 Pulse Ox 93 L 05/05/21 05:00 Intake & Output 05/04/21 05/05/21 05/05/21 18:59 06:59 18:59 Intake Total 1301 100 Output Total 200 Balance 1101 100 Intake: IV 1301 Intake, IV Titration 100 Amount ceFAZolin 3 gm In Sodium 100 Chloride 0.9% 100 ml @ 200 mls/hr IVPB Q8HR [facility] Rx#:[id number] Output: Estimated Blood Loss 200 Other: Voiding Method Toilet Toilet # Voids 2 - Exam Incision is clean, dry, intact. Steri-strips present over incision. There is moderate ecchymosis present near the incision. Arm sling is present over the left arm. Sensation is equal, symmetric, bilateral intact throughout. There is some tenderness to palpation along the incision on the left shoulder. Nontender throughout rest of exam. Patient is able to flex and extend left wrist and digits in left finger. Negative Homans bilaterally. Radial pulses intact, 2+ bilaterally. Capillary refill under 3 seconds bilaterally. - Labs CBC & Chem 7: 05/05/21 05:38 Labs: Abnormal Lab Results - Last 24 Hours (Table) 05/05/21 Range/Units 05:38 WBC 14.8 H (3.8-10.6) k/uL Neutrophils # 10.7 H (1.3-7.7) k/uL Monocytes # 1.2 H (0-1.0) k/uL Assessment and Plan Assessment: Left shoulder osteoarthritis - Postoperative day #1 status post left total shoulder arthroplasty Plan: 1. Left shoulder osteoarthritis - left total shoulder arthroplasty performed yesterday, 05/04/2021. Patient stable at this morning at bedside. Plan discharge home today. 2. Appreciate medical management 3. Pain management - [place] 4. DVT prophylaxis - aspirin 325 mg 5. GI prophylaxis - senna 6. PT/OT - nonweightbearing left arm. Keep incision clean. Can perform pendular exercises 7. Discharge planning - plan discharge home today Time with Patient: Less than 30
--- NOTE | 2021-05-05 14:38 | P.PN ---
Subjective Progress Note Date: 05/05/21 (delayed charting seen at 0915) Principal diagnosis: shoulder pain Patient is a 70-year-old male with hypertension, osteoarthritis, and prior prostate cancer status post left total shoulder arthroplasty. He tolerated the procedure well without any immediate postoperative complications. We are consulted for medical management. Patient seen and examined at bedside. + sore throat, shoulder pain well controlled, no nausea, no vomiting, no chest pain. We had a long discussion about how to treat sore throat. General: non toxic, no distress, appears at stated age Derm: warm, dry Head: atraumatic, normocephalic, symmetric Eyes: EOMI, no lid lag, anicteric sclera, pupils equal round reactive to light Mouth: no lip lesion, mucus membranes moist, throat with ecchymosis on posterior pharynx Cardiovascular: S1S2 tachy, no murmur, positive posterior tibial pulse bilateral, no edema, capillary refill less than 2 seconds Lungs: clear to auscultation bilateral, no ronchi, no rales, no wheeze, no accessory muscle use Abdominal: soft, nontender to palpation, no guarding, no appreciable organomegaly, normal bowel sounds Ext: no gross muscle atrophy, left am in sling Neuro: CN II-XI grossly intact, no focal neuro deficits Psych: Alert, oriented, appropriate affect Patient is a 70-year-old male status post left total shoulder arthroplasty-being managed by surgery Hypertension controlled -losartan/hydrochlorothiazide Sore throat - due to intubation for surgery - throat lozenges - cold drinks and food. Osteoarthritis -Resume Glucosamine/chondroitin okay with surgery Morbid obesity with BMI 42.1 -Outpatient structured weight loss Med recs addressed, patient medically optimized for discharge at the discretion of orth Thank you for allowing us to participate in the care of this pleasant patient. Do not hesitate to contact us with questions. Someone can be reached from the [facility] hospitalist group all hours of the day at [phone] or via [employer]. Objective - Vital Signs Vital signs: Vital Signs Temp 98.5 F 05/05/21 05:00 Pulse 93 05/05/21 05:00 Resp 18 05/05/21 05:00 BP 109/69 05/05/21 05:00 Pulse Ox 93 L 05/05/21 05:00 Intake & Output 1205/05/21 05/05/21 18:59 06:59 18:59 Intake Total 1301 100 Output Total 200 Balance 1101 100 Intake: IV 1301 Intake, IV Titration 100 Amount ceFAZolin 3 gm In Sodium 100 Chloride 0.9% 100 ml @ 200 mls/hr IVPB Q8HR [facility] Rx#:[id number] Output: Estimated Blood Loss 200 Other: Voiding Method Toilet Toilet # Voids 2 - Labs CBC & Chem 7: 05/05/21 05:38 Labs: Abnormal Lab Results - Last 24 Hours (Table) 05/05/21 Range/Units 05:38 WBC 14.8 H (3.8-10.6) k/uL Neutrophils # 10.7 H (1.3-7.7) k/uL Monocytes # 1.2 H (0-1.0) k/uL
== END 2021-05-05 14:24 | disposition home or self-care (01) ==
LOC: OR 05:52 → 5NMEDONC 09:59 → OR 05-05 14:24
PROVIDERS: ATTEND Orthopaedic Surgery
DX: M19.012 Primary osteoarthritis, left shoulder (principal); I10 Essential (primary) hypertension; Z85.46 Personal history of malignant neoplasm of prostate; Z20.822 Contact with and (suspected) exposure to COVID-19; Z87.891 Personal history of nicotine dependence; E66.01 Morbid (severe) obesity due to excess calories; Z68.41 Body mass index [BMI] 40.0-44.9, adult; Z80.3 Family history of malignant neoplasm of breast; Z80.42 Family history of malignant neoplasm of prostate; Z82.49 Family history of ischemic heart disease and other diseases of the circulatory system; Z98.890 Other specified postprocedural states; Z79.899 Other long term (current) drug therapy
CPT/HCPCS: 64415; 76942; 88305; 85025; 88311; 87635; 73020; 23472; C1713; C1776; J2250; J0330; J1100; J2710; J0690 ×2; J2405; J2001; J3010 ×2; J2795; J2370; J2704